=== PATIENT | female | born 1965 | race Caucasian/White ===

== ENCOUNTER → 2019-09-26 09:26 | Outpatient (BNVA) | payer BC, SELFPAY | PROVIDERS: Family Provider Nurse Practitioner; PCP Nurse Practitioner; Visit Provider Nurse Practitioner | DX: E11.65 Type 2 diabetes mellitus with hyperglycemia (principal); Z79.4 Long term (current) use of insulin; E03.9 Hypothyroidism, unspecified; I10 Essential (primary) hypertension; F41.8 Other specified anxiety disorders; E55.9 Vitamin D deficiency, unspecified | CPT/HCPCS: 80053; 80061; 81000; 82306; 83036; 83721; 84443 ==

== ENCOUNTER 2019-10-16 05:26 | Emergency (ER) | payer BC, SELFPAY ==
[2019-10-16 05:31] VITALS: BP 142/93; PULSE 89; RESP 16; TEMP 36.6; O2SAT 97; BMI 32.5
[2019-10-16 05:57] VITALS: BP 136/99; PULSE 98; RESP 20; O2SAT 99
--- NOTE | 2019-10-16 06:00 | ED_ITS ---
HPI - Back Pain/Injury General: Chief Complaint: Back Pain/Injury Stated Complaint: back pain Time Seen by Provider: 10/16/19 05:56 History of Present Illness: HPI Narrative: 54-year-old female presents emergency room with right flank pain. She had a telehealth visit they diagnosed her as having shingles. She does not have any vesicular rash. She is currently taking an anti-viral but has not noticed any improvement. MD elicited complaint: other (Right flank pain) Onset (ago): day(s) Timing: constant Severity: moderate Similar Symptoms Previously: No Quality: burning Location: right flank Radiation: none Exacerbating factors: none Relieving factors: none Associated symptoms: Deny abdominal pain, arthralgias, chills, change in bowel habits, difficulty walking, dysuria, fatigue, fecal incontinence, fever(s), hematuria, myalgias, nausea, numbness, syncope, tingling/numbness/burning, urinary frequency, urinary urgency, vomiting or weakness Treatments prior to arrival: other medications Review of Systems Const: Denies: fever(s), chills or fatigue ENMT: Denies: throat pain, ear or mastoid pain, nasal discharge or nasal congestion Card: Denies: syncope Resp: Denies: dyspnea, productive cough or non-productive cough GI: Denies: abdominal pain, nausea, vomiting, fecal incontinence or change in bowel habits : Denies: dysuria, urinary urgency or hematuria Skin/Breast: Denies: rash or pruritus Neuro: Denies: difficulty walking PFSH ED PFSH: Medical History Adult hypothyroidism Anxiety with depression Arthritis right hand 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 Diabetes mellitus with hyperglycemia, with long-term current use of insulin Environmental and seasonal allergies Essential (primary) hypertension Mixed hyperlipidemia Vitamin D deficiency Surgical History History of lipoma Back 1990 and abdomen History of reduction surgery of left breast History of reduction surgery of right breast History of thyroidectomy History of tubal ligation Family History Other Diabetes Heart disease Hypertension Social History Smoking and tobacco status: former smoker Second hand smoke exposure: No Smoking risk assessment/counseling performed?: No Alcohol intake: never Desire information about alcohol rehabilitation?: No Counseling given: No Desire information about substance/drug rehabilitation?: No Counseling given: No Adopted: No Caregiver/support person: No Lives independently: Yes Household members: none Housing: House Marital status: Number of children: 1 service: Yes branch: [employer] 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 Pets and animals: Yes Pets & animals: dog(s) History of recent travel: No Current gender identity: Female Female Reproductive History: Date of last menstrual period: 10/06/19 Physical Exam Const: COMMON NORMALS: average body habitus, patient oriented x3 and alert GENERAL APPEARANCE: cooperative, comfortable, well kempt and well developed NUTRITIONAL APPEARANCE: obese ORIENTATION/CONSCIOUSNESS: Yes awake, Yes oriented to person and Yes oriented to place HENMT: COMMON NORMALS: normocephalic, atraumatic and EAC's normal HEAD & SCALP: normocephalic and atraumatic EXTERNAL AUDITORY CANAL: EAC's normal Eye: COMMON NORMALS: Equal, round and reactive pupils present, EOMs intact bilaterally, conjunctivae normal and no scleral icterus CONJUNCTIVA: Yes conjunctivae normal PUPIL: Yes Equal, round and reactive pupils present Neck/C-Spine: COMMON NORMALS: no meningeal signs Resp: COMMON NORMALS: normal respiratory effort, No retractions, No use of accessory muscles and clear to auscultation bilaterally AUSCULTATION: clear to auscultation bilaterally Cardio: COMMON NORMALS: regular rate and regular rhythm RATE: regular rate RHYTHM: regular rhythm HEART SOUNDS: no murmurs GI: COMMON NORMALS: Normal to inspection, nondistended, normoactive bowel sounds present, Soft to palpation and No hepatosplenomegaly present PALPATION: Yes Soft to palpation and Yes No hepatosplenomegaly present : COMMON NORMALS: Yes no CVA tenderness BLADDER/KIDNEY EXAM: Yes no CVA tenderness Back/Pelvis: COMMON NORMALS: no CVA tenderness LUMBAR SPINE/LOWER BACK: Yes normal to inspection Extremity: COMMON NORMALS: no clubbing, cyanosis or edema, no calf tenderness and no pedal edema Neuro: COMMON NORMALS: patient oriented x3 SENSORIUM/ORIENTATION: Yes alert, Yes oriented to person and Yes oriented to place MENINGEAL SIGNS: Yes no meningeal signs Psych: APPEARANCE: Yes well kempt Skin: COMMON NORMALS: no rashes or lesions noted and turgor normal GENERAL SKIN EXAM: no rashes or lesions noted and turgor normal Course Vital Signs: Vital signs: Vital Signs Temperature 97.8 F 10/16/19 05:31 Pulse Rate 88 10/16/19 07:57 Respiratory Rate 20 H 10/16/19 07:57 Blood Pressure 156/97 10/16/19 07:57 Pulse Oximetry 98 10/16/19 07:57 MDM - Back Pain/Injury MDM Narrative: Medical decision making narrative: Large right ureteral stone proximal. Will start on above medications her pain is well controlled and I can discharge her home however follow-up with urology return if has uncontrollable pain Lab Data: Labs: Lab Results 10/16/19 10/16/19 10/16/19 Range/Units 05:43 06:26 06:26 WBC 7.5 (4.0-10.0) 10^3/ uL RBC 4.91 (4.1-5.3) 10^6/u L Hgb 14.7 (11.5-15.3) g/dL Hct 42.9 (37.0-47.0) % MCV 87.4 (81-99) fL MCH 29.9 (28.0-34.0) pg MCHC 34.3 (30.0-36.0) g/dL RDW 12.8 (12.1-15.1) % Plt Count 297 (130-400) 10^3/c mm MPV 10.3 (7.4-10.4) fL Neut % (Auto) 64.2 % Lymph % (Auto) 27.1 % [place] % (Auto) 5.6 % Eos % (Auto) 1.1 % Baso % (Auto) 0.9 % Neut # (Auto) 4.78 (1.8-7.7) 10^3/u L Lymph # (Auto) 2.0 (0.8-4.8) 10^3/u L [place] # (Auto) 0.4 (0.2-0.9) 10^3/u L Eos # (Auto) 0.1 (0.0-0.8) 10^3/u L Baso # (Auto) 0.1 (0.0-0.1) 10^3/u L Nucleated RBC % (a uto) 0 % Nucleated RBCs # 0.0 /100WBC Sodium 134 L (136-145) mmol/L Potassium 4.2 (3.5-5.1) mmol/L Chloride 99 (98-107) mmol/L Carbon Dioxide 22 (22-29) mmol/L Anion Gap 17.2 (5-19) BUN 13 (6-20) mg/dL Creatinine 0.6 (0.5-0.9) mg/dL GFR Calculation 105.0 (90-130) mL/min Glucose 442 H (65-115) mg/dL Calculated Osmolal ity 293 (285-295) mOsm/k g Calcium 9.7 (8.5-10.5) mg/dL Total Bilirubin 0.3 (0.15-1.2) mg/dL AST 13 (0-32) U/L ALT 20 (0-33) U/L Alkaline Phosphata se 128 H (35-105) IU/L Total Protein 7.7 (6.6-8.7) g/dL Albumin 4.5 (3.5-5.2) g/dL Globulin 3.2 (1.3-4.6) g/dL Urine Color Yellow (Yellow) Urine Appearance Hazy A (CLEAR) Urine pH 5 (5-7) Ur Specific Gravit y 1.020 (1.005-1.030) Urine Protein Neg (Negative) Urine Glucose (UA) 4+ H (Normal) Urine Ketones Negative (Negative) Urine Blood 2+ H (Negative) Urine Nitrate Negative (Negative) Urine Bilirubin Neg (NEGATIVE) Urine Urobilinogen Norm (Negative) mg/dL Ur Leukocyte Aleyda ase Negative (Negative) Urine RBC 5-10 H (0-2) /hpf Urine WBC 25-40 H (0-5) /hpf Ur Squamous Epith Cells 10-15 H (0-5) Amorphous Sediment Not Reportable Urine Bacteria 1+ H (NONE) Urine Mucus Trace Urine Yeast Trace Discharge Plan Discharge Patient Disposition: Home Clinical Impression: Right nephrolithiasis Condition: Stable Prescriptions: New hydrocodone-acetaminophen 5-325 mg tablet 1 tab PO Q6H PRN (Reason: pain) Qty: 20 RF: 0 Zofran 4 mg tablet 4 mg PO Q6H PRN (Reason: nausea and vomiting) Qty: 14 RF: 0 Cipro 500 mg tablet 500 mg PO BID Qty: 10 RF: 0 Flomax 0.4 mg capsule 0.4 mg PO DAILY Qty: 10 RF: 0 No Action albuterol sulfate [ProAir HFA] 90 mcg/actuation HFA aerosol inhaler 2 puff INHALATION QID RF: 0 ergocalciferol (vitamin D2) 50,000 unit tablet PO RF: 0 amlodipine 5 mg tablet 5 mg PO DAILY Qty: 90 RF: 0 levothyroxine [Synthroid] 200 mcg tablet 200 mcg PO DAILY Qty: 90 RF: 0 lisinopril 10 mg tablet 10 mg PO DAILY Qty: 90 RF: 0 metformin 500 mg tablet extended release 24hr 500 mg PO TID 90 Days Qty: 270 RF: 0 venlafaxine [Effexor XR] 75 mg capsule,extended release 24hr 75 mg PO DAILY Qty: 90 RF: 0 Levemir FlexTouch U-100 Insuln 100 unit/mL (3 mL) insulin pen 60 unit SUBCUT DAILY Qty: 15 RF: 2 Ozempic 0.25 mg or 0.5 mg(2 mg/1.5 mL) pen injector 0.25 mg SUBCUT .weekly Qty: 1.5 RF: 0 fenofibrate nanocrystallized [Tricor] 145 mg tablet 145 mg PO DAILY Qty: 30 RF: 2 insulin lispro [Humalog KwikPen Insulin] 100 unit/mL insulin pen 3 - 24 unit SUBCUT TID Qty: 15 RF: 0 zonisamide 50 mg capsule 50 mg PO BID Qty: 60 RF: 0 valacyclovir [Valtrex] 1 gram tablet 1,000 mg PO TID Qty: 21 RF: 0 Discharge Orders: Discharge Order (Routine); Ordered 10/16/19 Ordered By: Kuldeep Sigala Referrals: Cristian White MD [Physician] - Discharge Diet: Usual diet Discharge Activity: Increase activity as tolerated Activity Restrictions/Additional Instructions: Case management will call with an appointment to urology Discharge Date/Time: 10/16/19 07:48 Coding Level of Care Code ED Audiology Assistant for [facility] Fwd Exam Comprehensive
--- NOTE | 2019-10-16 06:21 | CTR_ITS ---
PROCEDURE INFORMATION: Exam: CT Lumbar Spine Without Contrast Exam date and time: 10/16/2019 6:23 AM Age: 54 years old Clinical indication: Low back pain; Patient HX: C/O of severe pain just adjacent to right side of lumbar spine. ; Additional info: Radicular leg pain TECHNIQUE: Imaging protocol: Computed tomography images of the lumbar spine without contrast. Radiation optimization: All CT scans at this facility use at least one of these dose optimization techniques: automated exposure control; mA and/or kV adjustment per patient size (includes targeted exams where dose is matched to clinical indication); or iterative reconstruction. COMPARISON: No relevant prior studies available. RADIATION DOSE METRICS: Total DLP (mGy-cm): 2385.43 FINDINGS: Vertebrae: No acute fracture. No subluxation. Discs/Spinal canal/Neural foramina: T12-L1 shows ossification of posterior longitudinal ligament with flattening the ventral thecal sac, without significant stenosis. There are lumbar disc bulges, thickening of ligamentum flavum, and facet degenerative changes. There are small anterior osteophytes. There is also curvilinear calcification ligamentum flavum. L1-L2 shows no spinal stenosis or neural foraminal narrowing. L2-L3 shows broad-based right foraminal disc protrusion which shows partial calcification/osteophyte at superior margin. This causes nxrv-fw-honvywhs neural foraminal narrowing and does contact the right L2 nerve root. No left neural foraminal narrowing. There is mild spinal stenosis. L3-L4 shows huni-rm-sulxkdsj spinal stenosis and mild neural foraminal narrowing. L4-L5 shows dyge-ng-ehlocdls spinal stenosis and mild foraminal narrowing. L5-S1 shows calcification or osteophyte along anterior aspect left facet with severe narrowing of medial left neural foramen. There uatu-ne-lwcxkqxe right neural foraminal narrowing. There is no spinal stenosis. Kidneys and ureters: Right hydronephrosis. Stone in proximal ureter. Please report of abdominal and pelvic CT. Soft tissues: See Discs/Spinal canal/Neural foramina finding. CT/CT lumbar spine wo con* [id number] IMPRESSION: 1. Right hydronephrosis with stone in ureter. This is likely patient's pain. 2. No acute fracture. Degenerative changes as described. Radiation Dose CTDIVOL = (mGy): DLP = 2385.43 (mGy-cm)
[2019-10-16 06:37] LABS: Basophils # 0.1 10^3/uL (0.0-0.1); Basophils % 0.9 %; Eosinophils # 0.1 10^3/uL (0.0-0.8); Eosinophils % 1.1 %; Hematocrit 42.9 % (37.0-47.0); Hemoglobin 14.7 g/dL (11.5-15.3); Lymphocytes % 27.1 %; Mean Corpuscular HGB Conc 34.3 g/dL (30.0-36.0); Mean Corpuscular Hemoglobin 29.9 pg (28.0-34.0); Mean Corpuscular Volume 87.4 fL (81-99); Mean Platelet Volume 10.3 fL (7.4-10.4); Monocytes # 0.4 10^3/uL (0.2-0.9); Monocytes % 5.6 %; Neutrophils # 4.78 10^3/uL (1.8-7.7); Neutrophils % 64.2 %; Nucleated Red Blood Cells % 0 %; Platelet Count 297 10^3/cmm (130-400); Red Blood Count 4.91 10^6/uL (4.1-5.3); Red Cell Distribution Width 12.8 % (12.1-15.1); White Blood Count 7.5 10^3/uL (4.0-10.0)
--- NOTE | 2019-10-16 06:40 | CTR_ITS ---
PROCEDURE INFORMATION: Exam: CT Abdomen And Pelvis Without Contrast Exam date and time: 10/16/2019 6:40 AM Age: 54 years old Clinical indication: Abdominal pain; Prior surgery; Surgery type: Tubal ligation; Patient HX: C/O right flank pain. TECHNIQUE: Imaging protocol: Computed tomography of the abdomen and pelvis without contrast. Radiation optimization: All CT scans at this facility use at least one of these dose optimization techniques: automated exposure control; mA and/or kV adjustment per patient size (includes targeted exams where dose is matched to clinical indication); or iterative reconstruction. COMPARISON: CT abdomen pelvis w con* [id number] 08/13/2013 3:08 PM RADIATION DOSE METRICS: Total DLP (mGy-cm): 1648 FINDINGS: Liver: There is diffuse decrease in hepatic parenchymal density, consistent with fatty infiltration. There is focal parenchymal sparing adjacent to the gallbladder fossa. Liver is enlarged with right lobe measuring 19.4 cm length. Gallbladder and bile ducts: See Liver finding. Pancreas: Unremarkable as visualized. No ductal dilation. Spleen: Unremarkable as visualized. No splenomegaly. Adrenals: No evidence of mass. Kidneys and ureters: There is uouu-vx-kxipggdu right hydroureteronephrosis with 7.5 mm by 3 mm stone in the proximal ureter. There is a very small calcification measuring approximately 1.3 mm seen on axial image 154 and coronal image 29 which is at anterior aspect of distal ureter proximal to the ureterovesical junction, and therefore may be extraluminal but a very small stone is not completely excluded. Stomach and bowel: No evidence of obstruction. No mucosal thickening. Appendix: No evidence of appendicitis. Intraperitoneal space: No free air. No significant fluid collection. Vasculature: There is mild atherosclerotic change. No aortic aneurysm. Lymph nodes: No enlarged lymph nodes. Bladder: Unremarkable as visualized. Reproductive: Unremarkable as visualized. Bones/joints: Degenerative changes in spine are described on lumbar spine report. There are mild degenerative changes in bilateral hips. Small sclerotic lesion L2 and left-side sacrum are nonspecific but may be bone islands. Soft tissues: There is minimal fat containing paraumbilical hernia. CT/CT kidney stone [id number] IMPRESSION: Right hydronephrosis. Stone proximal ureter. Possible stone versus extraluminal calcification adjacent to distal ureter. Radiation Dose CTDIVOL = (mGy): DLP = 1648 (mGy-cm)
[2019-10-16 06:46] LABS: Add Urine Microscopic? YES; Bilirubin Urine Neg (NEGATIVE); Blood Urine 2+ (Negative); Glucose Urine UA 4+ (Normal); Ketones Urine Negative (Negative); Leukocyte Esterase Urine Negative (Negative); Nitrate Urine Negative (Negative); Protein Urine Neg (Negative); Urine Appearance Hazy (CLEAR); Urine Color Yellow (Yellow); Urobilinogen Urine Norm (Negative); pH Urine 5 (5-7)
[2019-10-16 06:48] LABS: Bacteria Urine 1+; Mucus Urine TRACE; WBC Urine 25-40 /hpf (0-5)
[2019-10-16 06:49] LABS: Add Urine Culture? No
[2019-10-16] MEDS: ondansetron 2 mg/ML SDV 2 mL 4 MG IVP (06:50)
[2019-10-16 06:52] LABS: Alanine Aminotransferase 20 U/L (0-33); Albumin Level 4.5 g/dL (3.5-5.2); Alkaline Phosphatase 128 IU/L (35-105); Anion Gap 17.2 (5-19); Aspartate Amino Transferase 13 U/L (0-32); Blood Urea Nitrogen 13 mg/dL (6-20); Calcium 9.7 mg/dL (8.5-10.5); Carbon Dioxide 22 mmol/L (22-29); Chloride 99 mmol/L (98-107); Globulin 3.2 g/dL (1.3-4.6); Glucose 442 mg/dL (65-115); Osmolality Calculated 293 mOsm/kg (285-295); Potassium 4.2 mmol/L (3.5-5.1); Sodium 134 mmol/L (136-145); Total Bilirubin 0.3 mg/dL (0.15-1.2); Total Protein 7.7 g/dL (6.6-8.7)
[2019-10-16 06:54] VITALS: RESP 20
[2019-10-16] MEDS: morphine 4 mg/mL SDV 1 mL IVP (06:54)
[2019-10-16] MEDS: sodium chloride 0.9% 1,000 ML 999 ML IV (06:55)
[2019-10-16 06:59] VITALS: BP 135/93; PULSE 81; RESP 17; O2SAT 97
[2019-10-16 07:00] VITALS: BP 135/93; PULSE 83; RESP 17; O2SAT 97
[2019-10-16 07:57] VITALS: BP 156/97; PULSE 88; RESP 20; O2SAT 98
--- NOTE | 2019-10-16 08:38 | DCPLANNER ---
cancer registry manager had message to schedule a follow up appointment for patient with Dr. White. cancer registry manager called the office of Dr. White, spoke with Katy, gave clinic patients appointment information. cancer registry manager was told that patients information would be printed and reviewed. Clinic will call patient with appointment information.
--- NOTE | 2019-10-17 12:50 | DCPLANNER ---
Patient attended appointment scheduled for 10.16.19 - patient did attend the appointment.
== END 2019-10-16 07:48 | disposition home or self-care (01) ==
PROVIDERS: Emergency Provider Family Medicine; PCP Nurse Practitioner
DX: N20.0 Calculus of kidney (principal); Z79.4 Long term (current) use of insulin; E11.9 Type 2 diabetes mellitus without complications; I10 Essential (primary) hypertension; E78.2 Mixed hyperlipidemia; Z87.891 Personal history of nicotine dependence
CPT/HCPCS: 12345; 72131; 74176; 80053; 81001; 85025; 96361; 96374; 96375; 99282; 99284; J2270; J2405; J7030

== ENCOUNTER → 2019-10-17 08:31 | Outpatient (BNVA) | payer BC, SELFPAY | PROVIDERS: PCP Nurse Practitioner; Visit Provider Nurse Practitioner Family | DX: N20.0 Calculus of kidney (principal); Z20.828 Contact with and (suspected) exposure to other viral communicable diseases | CPT/HCPCS: 87635 ==

== ENCOUNTER 2019-10-19 12:09 | Day surgery (SDC) | payer BC, SELFPAY ==
[2019-10-18 11:36] VITALS: BMI 32.5
[2019-10-19] VITALS (8 sets, daily range): BP systolic 117–163; BP diastolic 72–100; PULSE 68–97; RESP 13–20; TEMP 36.1–36.6; O2SAT 93–97
--- NOTE | 2019-10-19 12:23 | XR_ITS ---
WS: [id number] KUB, 10/19/2019 Clinical Data: Preop right ESWL Comparison: CT abdomen and pelvis, 10/16/2019. Findings: There is a 1.0 cm calcification adjacent to the right L3 transverse process corresponding to the pro ximal right ureteral calculus noted on the CT exam. The remainder of the examination is unremarkable. No renal dislocations or suspicious pelvic calcific ations are seen. XR/XR KUB [id number] Impression: Proximal right ureteral calculus.
[2019-10-19 13:23] LABS: Glucose Point of Care 309 mg/dL (70-110)
[2019-10-19] MEDS: sodium chloride 0.9% 1,000 ML 30 ML IV (13:23)
--- NOTE | 2019-10-19 13:37 | ANES.PREANE2 ---
Pre-Anesthetic Assessment Pre-Anesthetic Assessment: Height/Weight: Height 1.68 m Weight 91.626 kg Temp Pulse Resp BP Pulse Ox 97.8 F 97 18 142/99 97 10/19/19 13:05 10/19/19 13:05 10/19/19 13:05 10/19/19 13:05 10/19/19 13:05 Preop Diagnosis: Large right proximal ureteral stone with refractory renal colic Proposed Procedure: Operation Date: 10/19/19 13:55 Proposed Procedures p Cystoscopy [id number] N20.0(Not Applicable) - Cristian White MD s Ureteral Stent Placement(Right) - Cristian White MD s ESWL(Not Applicable) - Cristian White MD Familial anesthetic complications: None Was Beta Samia taken within 24 hours: N/A Last intake: Intake Last Liquid Date 10/19/19 Last Liquid Time 08:20 Last Solid Date 10/17/19 Last Solid Time 20:30 Social: Social History: No alcohol and No tobacco Comment: former smoker Exam: Pre-Anes Outpt Exam: alert, oriented x 3, clear to auscultation bilaterally and regular rate & rhythm Airway: Cervical ROM: WNL MP: 3 Dentition: Full Metabolic: Metabolic: DM, Hyperlipidemia, Morbid obesity and Thyroid Anesthetic Plan: ASA status: 2 Anesthesia: General Risk of > 500 ml blood loss (7ml/kg in children): No Meds/Allergies Current Medications: Current Medications Generic Name Dose Route Start Last Admin Trade Name Freq PRN Reason Stop Dose Admin Sodium Chloride 1,000 mls @ 30 ml s/hr 10/19/19 12:30 10/19/19 13:23 Sodium Chloride 0.9% IV 10/20/19 12:29 30 mls/hr .Q24H AKHIL Administration PFSH Anesthesia PFSH: Medical History (Updated 10/17/19 @ 05:37 by Cristian White MD) Adult hypothyroidism Anxiety with depression Arthritis right hand 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 Diabetes mellitus with hyperglycemia, with long-term current use of insulin Environmental and seasonal allergies Essential (primary) hypertension Mixed hyperlipidemia Vitamin D deficiency Surgical History History of lipoma Back 1990 and abdomen History of reduction surgery of left breast History of reduction surgery of right breast History of thyroidectomy History of tubal ligation Family History Other Diabetes Heart disease Hypertension Social History Smoking and tobacco status: former smoker Second hand smoke exposure: No Smoking risk assessment/counseling performed?: No Alcohol intake: never Desire information about alcohol rehabilitation?: No Counseling given: No Desire information about substance/drug rehabilitation?: No Counseling given: No Adopted: No Caregiver/support person: No Lives independently: Yes Household members: none Housing: House Marital status: Number of children: 1 service: Yes branch: [employer] 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
--- NOTE | 2019-10-19 14:58 | P.HPUD_ITS ---
Surgery/Procedure H&P Update DATE OF PROCEDURE: October 19, 2019 DATE H&P PERFORMED: 10/16/19 H&P UPDATE INFORMATION: I have reviewed H&P completed within last 30 days, I have examined patient prior to procedure, No changes to prior documentation and H&P is in [facility] EMR on date indicated PREOP DIAGNOSIS: Large right proximal ureteral stone with refractory renal colic PLANNED PROCEDURE: Operation Date: 10/19/19 13:55 Proposed Procedures p Cystoscopy [id number] N20.0(Not Applicable) - Cristian White MD s Ureteral Stent Placement(Right) - Cristian White MD s ESWL(Not Applicable) - Cristian White MD
[2019-10-19] MEDS: levofloxacin-dextrose 5 % 500 MG/100 ML PREMIX 100 MG IV (15:20)
--- NOTE | 2019-10-19 16:23 | PM.OP ---
Operative Report Date of procedure: October 19, 2019 Pre-op Diagnosis: Large right proximal ureteral stone with refractory renal colic Post-op diagnosis: same Procedure Done: 1. Extracorporeal shockwave lithotripsy to right proximal ureteral stone 2. Cystoscopy with right ureteral stent placement Pathology: none sent Surgeon: Christopher Unified Communications Architect: Lithotripsy [employer] Systems Engineer: Rupert Anesthesia: General Estimated blood loss: None Urine output: Not measured Complications: None Findings: Excellent change. A 6 [place] by 26 cm double-pigtail stent left indwelling, no string Condition: stable Disposition: PACU Brief History: Juana is a very pleasant 54-year-old white female who recently presented with severe right renal colicky symptom and a large spiculated right proximal ureteral stone with obstructive changes identified on CT scan in the absence of UTI. She had been hurting for a couple weeks with no evidence of progression. She was admitted to outpatient surgery today for ESWL and likely stent placement. Procedure: After urgent evaluation examination and obtaining of informed consent she was taken to the operating suite on 10/19/2019 where general anesthesia was administered without difficulty after appropriate timeout was performed, SCDs confirmed to be functioning, preoperative antibiotics administered, beta-stewart protocol confirmed. Position on the Dornier unit such that the stone was located at the focal point utilizing biplanar fluoroscopy with a shock head positioned posteriorly. Stone was easily identified. Shock therapy stats: 2500 shocks administered Intensity 1-4 Rate 60-90 Response: Excellent. Dramatic change. She was then repositioned in dorsolithotomy position pain careful attention to avoiding pressure points. Prepped and draped in the usual sterile fashion. 21 [place] cystoscope with 30 degree lens was introduced into the urethral meatus and advanced into the bladder under videoscopy Flexible tip guidewire did easily advanced up the right ureter bypassing the sand cluster which dispersed it even further. 6 [place] by 26 cm double-pigtail stent advanced over the guidewire through the cystoscope into appropriate position as confirmed via fluoroscopy and cystoscopy. Stent was confirmed to be draining. Bladder was drained and the procedure completed. Tolerated the procedure well without complications and was awakened in the operating room and returned to recovery in stable condition. PLANS: 1. Discharge from outpatient surgery today. Follow-up next week with a KUB and likely cystoscopy stent removal if perceived change/fragmentation is correct
--- NOTE | 2019-10-19 16:28 | SUR.PHASEI ---
1626 PATIENT TO PACU FROM OR. RR EVEN AND UNLABORED. DENIES PAIN. PATIENT SPO2 95% ON RA.
[2019-10-19] MEDS: ondansetron 2 mg/ML SDV 2 mL 4 MG IVP ×2 (16:32→16:46)
--- NOTE | 2019-10-19 16:51 | SUR.PHASEI ---
2224 PATIENT C/O PAIN, BUT WANTING TO USE BSC, FEELS THE NEED TO URINATE. NAUSEA IMPROVED. PATIENT TO OPS. ASSISTED TO BSC. C/O NAUSEA IN OPS, ZOFRAN GIVEN.
--- NOTE | 2019-10-19 17:30 | ANE.PACU2 ---
Inpatient post-anesthesia follow up: Airway intact: Yes Vital signs: Temperature 97.0 F Pulse Rate 74 Respiratory Rate 18 Blood Pressure 137/76 Pulse Oximetry 96 Oxygen Delivery Me thod Room Air Oxygen Flow Rate Fraction of Inspir ed Oxygen Hydration adequate: Yes Nausea and vomiting: No Pain level: 1 Mental status: Baseline
== END 2019-10-19 17:38 | disposition home or self-care (01) ==
PROVIDERS: PCP Nurse Practitioner; Visit Provider Urology
PROC: 0TJB8ZZ Inspection of Bladder, Via Natural or Artificial Opening Endoscopic (ICD-10-PCS; CPT 52000; principal; 2019-10-19 13:55)
PROC: (CPT 50605; 2019-10-19 13:55)
PROC: (CPT 50590; 2019-10-19 13:55)
DX: N20.1 Calculus of ureter (principal); E11.9 Type 2 diabetes mellitus without complications; I10 Essential (primary) hypertension; E78.2 Mixed hyperlipidemia; E66.01 Morbid (severe) obesity due to excess calories; Z79.4 Long term (current) use of insulin; Z87.891 Personal history of nicotine dependence; Z68.32 Body mass index [BMI] 32.0-32.9, adult
CPT/HCPCS: 50590; 52332; 12345; 36416; 74018; 81025; 82962; C2625; J1956; J2405; J2704; J3010; J3490; J7030

== ENCOUNTER 2019-10-24 07:08 | Outpatient (CLI) | payer BC, SELFPAY ==
--- NOTE | 2019-10-24 07:30 | XRR_ITS ---
PROCEDURE INFORMATION: Exam: XR Abdomen, 1 View Exam date and time: 10/24/2019 7:22 AM Age: 54 years old Clinical indication: Condition or disease; Kidney or ureter condition; Calculus (stone) in ureter; Prior surgery; Surgery date: 3-7 days post-operative; Surgery type: Renal stent placed; Ureteral stone; Patient HX: Follow up kidney stone removal 5 days ago with stent placed TECHNIQUE: Imaging protocol: XR of the abdomen. Views: Frontal supine view of the abdomen. 1 View. COMPARISON: CR XR KUB [id number] 10/19/2019 12:38 PM FINDINGS: Gastrointestinal tract: bowel gas pattern is nonspecific. Air filled large bowel including distal rectal gas. Moderate amount stool throughout the large bowel. Organs: Double-J ureteric stent on the right.4 mm calcification midpole right kidney. Previously visualized ureteric calculus at the level of the transverse process of L2 no longer visualized. Bones/joints: See Organs finding. XR/XR KUB [id number] IMPRESSION: 1. Bowel gas pattern is nonspecific. Air filled large bowel including distal rectal gas. 2. Moderate amount stool throughout the large bowel. 3. Double-J ureteric stent on the right.4 mm calcification midpole right kidney. Previously visualized ureteric calculus at the level of the transverse process of L2 no longer visualized.
== END 2019-10-24 07:09 | disposition home or self-care (01) ==
LOC: RAD 07:11
PROVIDERS: PCP Nurse Practitioner; Visit Provider Urology
DX: N20.1 Calculus of ureter (principal); Z96.0 Presence of urogenital implants
CPT/HCPCS: 74018; 81001; 82365

== ENCOUNTER 2019-11-07 07:36 | Outpatient (CLI) | payer BC, SELFPAY ==
--- NOTE | 2019-11-07 08:15 | XRR_ITS ---
PROCEDURE INFORMATION: Exam: XR Abdomen, 1 View Exam date and time: 11/07/2019 7:48 AM Age: 54 years old Clinical indication: Condition or disease; Kidney or ureter condition; Calculus (stone) in ureter; Prior surgery; Surgery type: Tubal, kidney stent; Additional info: Right ureteral calculus TECHNIQUE: Imaging protocol: XR of the abdomen. Views: Frontal supine view of the abdomen. 1 View. COMPARISON: 1. CR XR KUB [id number] 10/24/2019 7:[address] kidney stone [id number] 10/16/2019 6:37:16 AM FINDINGS: Gastrointestinal tract: No dilated gas-filled loops of bowel. Organs: There is a 5 mm x 2 mm right renal calculus. No radiopaque ureteral calculus identified. Vasculature: There is a right double-J stent present. Bones/joints: No acute osseous abnormality. XR/XR KUB [id number] IMPRESSION: Right nephrolithiasis.
== END 2019-11-07 07:37 | disposition home or self-care (01) ==
LOC: RAD 07:38
PROVIDERS: PCP Nurse Practitioner; Visit Provider Urology
DX: N20.1 Calculus of ureter (principal); Z96.0 Presence of urogenital implants; N20.0 Calculus of kidney
CPT/HCPCS: 74018; 81001

== ENCOUNTER 2019-12-27 10:48 | Outpatient (CLI) | payer BC, SELFPAY ==
--- NOTE | 2019-12-27 11:00 | XR_ITS ---
WS: [id number] Cervical spine, 3 views, 12/27/2019 Clinical Data: R20.2 - Paresthesia of skin Comparison: None. Findings: No compression fractures are seen. There is straightening of the cervical spine. There is d isc space narrowing at C2-C3 and C3-C4 and C4-C5. There is minimal anterior osteoarthritic spurring f rom C4 through C6. There is no prevertebral soft tissue swelling. The odontoid is unremarkable. The s oft tissues of the neck and the lung apices show only a possible left carotid bifurcation calcificati on.. XR/XR cervical spine 3V* [id number] Impression: 1. Multilevel disc space narrowing. 2. Multilevel osteoarthritic change.
--- NOTE | 2019-12-27 11:30 | XR_ITS ---
WS: [id number] Right shoulder, 3 views, 12/27/2019 Clinical Data: R20.2 - Paresthesia of skin Comparison: None. Findings: No fractures or dislocations are seen. The AC joint is normal. The adjacent right clavicle, right sca pula and ribs are normal. The soft tissues are unremarkable. XR/XR shoulder RT min 2V* [id number] Impression: Negative right shoulder.
== END 2019-12-27 10:49 | disposition home or self-care (01) ==
LOC: RADWPI 10:52
PROVIDERS: PCP Nurse Practitioner; Visit Provider Nurse Practitioner
DX: R20.2 Paresthesia of skin (principal)
CPT/HCPCS: 72040; 73030

== ENCOUNTER → 2020-01-02 11:48 | Outpatient (BNVA) | payer BC, SELFPAY | PROVIDERS: PCP Nurse Practitioner; Visit Provider Nurse Practitioner | DX: E03.9 Hypothyroidism, unspecified (principal); E11.65 Type 2 diabetes mellitus with hyperglycemia; E55.9 Vitamin D deficiency, unspecified; Z79.4 Long term (current) use of insulin | CPT/HCPCS: 80053; 80061; 81000; 82306; 83036; 83721; 84439; 84443; 84481; 85025 ==

== ENCOUNTER → 2020-04-23 08:55 | Outpatient (BNVA) | payer BC, SELFPAY | PROVIDERS: PCP Family Medicine; Visit Provider Family Medicine | DX: E11.65 Type 2 diabetes mellitus with hyperglycemia (principal); Z79.4 Long term (current) use of insulin; E78.1 Pure hyperglyceridemia; E03.9 Hypothyroidism, unspecified; K21.9 Gastro-esophageal reflux disease without esophagitis; M50.120 Mid-cervical disc disorder, unspecified level; M79.601 Pain in right arm; I10 Essential (primary) hypertension; M79.2 Neuralgia and neuritis, unspecified; Z68.31 Body mass index [BMI] 31.0-31.9, adult | CPT/HCPCS: 80053; 80061; 83721; 84439; 84443; 84480 ==

== ENCOUNTER → 2020-04-29 08:45 | Outpatient (BNVA) | payer BC, SELFPAY | PROVIDERS: PCP Family Medicine; Visit Provider Internal Medicine | DX: E03.9 Hypothyroidism, unspecified (principal); E11.65 Type 2 diabetes mellitus with hyperglycemia; Z79.4 Long term (current) use of insulin; E78.5 Hyperlipidemia, unspecified; R10.9 Unspecified abdominal pain | CPT/HCPCS: 95251; 99205 ==

== ENCOUNTER 2020-05-02 11:38 | Outpatient (CLI) | payer BC, SELFPAY ==
[2020-05-02 12:34] LABS: Estmated Average Glucose 295; Hemoglobin A1C 11.9 % (4.0-6.0)
[2020-05-02 12:41] LABS: Free T4 Free Thyroxine 1.44 ng/dL (0.82-1.77); Lipase 23 U/L (13-60); Thyroid Stimulating Hormone 5.87 uIU/mL (0.27-4.20)
== END 2020-05-02 11:39 | disposition home or self-care (01) ==
PROVIDERS: PCP Family Medicine; Visit Provider Internal Medicine
DX: E03.9 Hypothyroidism, unspecified (principal); E11.65 Type 2 diabetes mellitus with hyperglycemia; Z79.4 Long term (current) use of insulin; R10.9 Unspecified abdominal pain
CPT/HCPCS: 83036; 83690; 84439; 84443

== ENCOUNTER 2020-05-07 08:52 | Outpatient (CLI) | payer BC, SELFPAY ==
--- NOTE | 2020-05-07 09:05 | XR_ITS ---
WS: [id number] SHOULDER RIGHT TECHNIQUE: 3 views of the right shoulder CLINICAL INFORMATION: THORACIC PAIN, RADICULOPATHY COMPARISON: None. FINDINGS: Normal acromioclavicular joint. Normal glenohumeral joint. Acromion is normal in appearance. Normal g lenoid. No evidence of acute fracture dislocation. XR/XR shoulder RT min 2V* [id number] IMPRESSION: Unremarkable right shoulder
--- NOTE | 2020-05-07 09:05 | XR_ITS ---
WS: [id number] THORACIC SPINE TECHNIQUE: 3 views of the thoracic spine CLINICAL INFORMATION: THORACIC PAIN, RADICULOPATHY COMPARISON: None. FINDINGS: Mild thoracic curve. Mild thoracic kyphosis. Anterior hypertrophic changes in the mid lower thoracic spine. Mild chronic anterior wedging in the mid thoracic spine. No acute appearing compression fractu res. XR/XR thoracic spine 3V* [id number] IMPRESSION: Mild spondylitic changes thoracic spine with anterior wedging. No acute finding s.
== END 2020-05-07 08:53 | disposition home or self-care (01) ==
PROVIDERS: PCP Family Medicine; Visit Provider Chiropractor
DX: M54.6 Pain in thoracic spine (principal); M54.14 Radiculopathy, thoracic region
CPT/HCPCS: 72072; 73030

== ENCOUNTER 2020-05-12 10:42 | Outpatient (CLI) | payer BC, SELFPAY ==
--- NOTE | 2020-05-12 11:12 | MR_ITS ---
WS: [id number] MRI CERVICAL SPINE NONCONTRAST TECHNIQUE: Sagittal T1, T2 and STIR imaging. Axial T2, gradient, and fiesta imaging. CLINICAL INFORMATION: COMPARISON: None. FINDINGS: Straightening of the normal cervical lordosis. Cord signal is normal. Mild disc bulging at C5-C6 and C6-C7. C2-C3: Normal. C3-C4: Mild left and no significant right foraminal narrowing. Moderate left facet arthropathy. C4-C5: Osteophytic ridging. Mild left bony foraminal narrowing. Moderate left facet arthropathy. Spin al canal and foramen are patent. C5-C6: Mild annular bulging with mild central canal stenosis.. Mild facet arthropathy. Mild bilateral foraminal narrowing. C6-C7: Mild disc bulging and osteophytic ridging. Mild left greater than right bony foraminal narrowi ng. Mild central canal stenosis. C7-T1: Mild left and no significant right foraminal narrowing. Spinal canal is patent. Visualized brain stem structures: Normal. Prevertebral soft tissues: Normal. MR/MR cervical spin wo con* [id number] IMPRESSION: 1. Straightening of the normal cervical lordosis. Cord signal is normal. 2. Mild central canal stenosis C6-7 with mild left bony foraminal narrowing. 3. Mild annular bulging C5-C6 with mild central canal stenosis. Mild bilateral foraminal narrowing. 4. Moderate left facet arthropathy C4-5 with mild left bony foraminal narrowin g. 5. Moderate left facet arthropathy C3-C4 with mild left bony foraminal narrowi ng.
== END 2020-05-12 10:43 | disposition home or self-care (01) ==
LOC: RADWPI 11:07
PROVIDERS: PCP Family Medicine; Visit Provider Family Medicine
DX: M50.30 Other cervical disc degeneration, unspecified cervical region (principal); M79.601 Pain in right arm; M47.812 Spondylosis without myelopathy or radiculopathy, cervical region; M50.222 Other cervical disc displacement at C5-C6 level
CPT/HCPCS: 72141

== ENCOUNTER → 2020-05-27 09:46 | Outpatient (BNVA) | payer BC, SELFPAY | PROVIDERS: PCP Family Medicine; Referring Provider Family Medicine; Visit Provider Orthopaedic Surgery | DX: M50.321 Other cervical disc degeneration at C4-C5 level (principal); M50.322 Other cervical disc degeneration at C5-C6 level; M50.323 Other cervical disc degeneration at C6-C7 level | CPT/HCPCS: 72040 ==

== ENCOUNTER 2020-06-04 11:12 | Outpatient (RCR) | payer BC, SELFPAY | END 2020-06-13 23:59 | disposition home or self-care (01) | LOC: SPT 11:12 | PROVIDERS: PCP Family Medicine; Referring Provider Orthopaedic Surgery; Visit Provider Orthopaedic Surgery | DX: M75.01 Adhesive capsulitis of right shoulder (principal) | CPT/HCPCS: 97110; 97161 ==

== ENCOUNTER → 2020-07-09 09:17 | Outpatient (BNVA) | payer BC, SELFPAY | PROVIDERS: PCP Nurse Practitioner; Visit Provider Nurse Practitioner | DX: E03.9 Hypothyroidism, unspecified (principal); E11.65 Type 2 diabetes mellitus with hyperglycemia; Z79.4 Long term (current) use of insulin; I10 Essential (primary) hypertension; E78.2 Mixed hyperlipidemia; F41.8 Other specified anxiety disorders | CPT/HCPCS: 80053; 83036; 84439; 84443; 84481 ==

== ENCOUNTER 2020-09-23 15:09 | Outpatient (CLI) | payer BC, SELFPAY ==
--- NOTE | 2020-09-23 15:15 | MR_ITS ---
WS: [id number] MRI LUMBAR SPINE NONCONTRAST TECHNIQUE: Sagittal T1, T2 and STIR imaging. Axial T1 and T2 imaging. CLINICAL INFORMATION: COMPARISON: None. FINDINGS: Mild lumbar curve. No acute compression. No high-grade central canal stenosis. Shallow central protru wilfrid with slight subligamentous disc herniation at T12-L1 with cranial and caudal migration of disc m aterial. This results in mild central canal stenosis with slight effacement of ventral thecal sac. Mi ld facet arthropathy. Foramen are patent. L1-L2: Normal. L2-L3: Small right foraminal protrusion with a tiny annular fissure impinges the exiting right L2 ner ve root. Recommend correlation for right L2 nerve root symptoms. Moderate right foraminal narrowing. Left foramen is patent. Moderate facet arthropathy. Slight narrowing of the right subarticular recess . L3-L4: Minimal annular bulging. Slight effacement of ventral thecal sac. Small bilateral foraminal pr otrusions with mild bilateral foraminal narrowing. Slight contact of the exiting left greater than ri ght L3 nerve roots. Mild facet arthropathy. L4-L5: Mild annular bulging with slight effacement of ventral thecal sac. Impingement on the subartic ular recess and traversing L5 nerve roots bilaterally. Mild right and no significant left foraminal n arrowing. Mild facet arthropathy. L5-S1: Mild annular bulging with slight effacement of ventral thecal sac. Slight impingement on the l eft subarticular recess and traversing left S1 nerve root. Moderate facet arthropathy with ligamentum flavum hypertrophy. Mild left foraminal narrowing. Visualized pelvic bony structures: Normal. Paravertebral soft tissues: Normal. MR/MR lumbar spine wo con* [id number] IMPRESSION: 1. Mild lumbar curve. No acute compression. No high-grade central canal stenos is. 2. Subligamentous disc herniation T12-L1 with a shallow central protrusion. Mi ld central canal stenosis. Foramen are patent. 3. Right foraminal protrusion L2-3 impinges the exiting right L2 nerve root wi th a small annular tear and moderate right foraminal narrowing. In addition, sl ight impingement traversing right L3 nerve root at this level in the subarticul ar recess. 4. Tiny bilateral frontal protrusions L3-4 slightly contact the exiting left g reater than right L3 nerve roots with mild left greater than right foraminal na rrowing. 5. Mild annular bulging L4-5 with impingement on the traversing L5 nerve roots bilaterally. 6. Disc bulging L5-S1 impinges the left S1 nerve root in the subarticular rece ss. Mild to moderate left L5-S1 foraminal narrowing at this level with moderate facet arthropathy.
== END 2020-09-23 15:10 | disposition home or self-care (01) ==
LOC: RADSHAW 15:14
PROVIDERS: PCP Nurse Practitioner; Visit Provider Nurse Practitioner
DX: M79.605 Pain in left leg (principal); M51.27 Other intervertebral disc displacement, lumbosacral region; M51.26 Other intervertebral disc displacement, lumbar region; M51.25 Other intervertebral disc displacement, thoracolumbar region
CPT/HCPCS: 72148

== ENCOUNTER → 2020-10-15 10:14 | Outpatient (BNVA) | payer BC, SELFPAY | PROVIDERS: PCP Nurse Practitioner; Referring Provider Orthopaedic Surgery; Visit Provider Anesthesiology Pain Medicine | DX: M47.816 Spondylosis without myelopathy or radiculopathy, lumbar region (principal); M79.605 Pain in left leg | CPT/HCPCS: 99204 ==

== ENCOUNTER 2020-11-12 06:00 | Outpatient (RCR) | payer BC, SELFPAY | END 2020-11-13 23:59 | disposition home or self-care (01) | LOC: SPT 06:00 | PROVIDERS: PCP Nurse Practitioner; Referring Provider Anesthesiology Pain Medicine; Visit Provider Anesthesiology Pain Medicine | DX: M47.816 Spondylosis without myelopathy or radiculopathy, lumbar region (principal); M54.5 Low back pain; M79.605 Pain in left leg | CPT/HCPCS: 97161 ==

== ENCOUNTER 2020-11-14 06:00 | Outpatient (RCR) | payer BC, SELFPAY | END 2020-12-14 23:59 | disposition home or self-care (01) | LOC: SPT 06:00 | PROVIDERS: PCP Nurse Practitioner; Referring Provider Anesthesiology Pain Medicine; Visit Provider Anesthesiology Pain Medicine | DX: M47.816 Spondylosis without myelopathy or radiculopathy, lumbar region (principal) | CPT/HCPCS: 97032; 97110 ==

== ENCOUNTER → 2020-11-18 09:18 | Outpatient (BNVA) | payer BC, SELFPAY | PROVIDERS: PCP Family Medicine; Visit Provider Internal Medicine | DX: E11.65 Type 2 diabetes mellitus with hyperglycemia (principal); E55.9 Vitamin D deficiency, unspecified; E78.5 Hyperlipidemia, unspecified; Z79.4 Long term (current) use of insulin; E03.9 Hypothyroidism, unspecified | CPT/HCPCS: 80048; 83036; 84439; 84443; 99214 ==

== ENCOUNTER → 2020-12-29 10:16 | Outpatient (BNVA) | payer BC, SELFPAY | PROVIDERS: PCP Nurse Practitioner; Visit Provider Anesthesiology Pain Medicine | DX: G89.29 Other chronic pain (principal); M47.816 Spondylosis without myelopathy or radiculopathy, lumbar region; M79.605 Pain in left leg; M54.2 Cervicalgia; Z87.891 Personal history of nicotine dependence | CPT/HCPCS: 99214 ==

== ENCOUNTER → 2021-01-15 14:28 | Outpatient (BNVA) | payer BC, SELFPAY | PROVIDERS: PCP Nurse Practitioner; Visit Provider Anesthesiology Pain Medicine | DX: M54.16 Radiculopathy, lumbar region (principal); Z87.891 Personal history of nicotine dependence | CPT/HCPCS: 64483; 64484; J1100; J3490 ==

== ENCOUNTER 2021-01-23 07:49 | Outpatient (CLI) | payer BC, SELFPAY ==
[2021-01-23 08:39] LABS: T3 Free 1.3 PG/ML (2.0-4.4); Thyroid Stimulating Hormone 30.79 uIU/mL (0.27-4.20)
== END 2021-01-23 07:50 | disposition home or self-care (01) ==
LOC: LAB 07:51
PROVIDERS: PCP Nurse Practitioner; Visit Provider Nurse Practitioner
DX: E03.9 Hypothyroidism, unspecified (principal)
CPT/HCPCS: 36415; 84439; 84443; 84481

== ENCOUNTER 2021-02-12 14:48 | Outpatient (CLI) | payer BC, SELFPAY ==
[2021-02-12 15:58] LABS: Free T4 Free Thyroxine 1.74 ng/dL (0.82-1.77)
[2021-02-13 07:27] LABS: T3 Total 87 ng/dL (76-181)
== END 2021-02-12 14:49 | disposition home or self-care (01) ==
PROVIDERS: PCP Nurse Practitioner; Visit Provider Internal Medicine
DX: E03.9 Hypothyroidism, unspecified (principal)
CPT/HCPCS: 36415; 84439; 84480

== ENCOUNTER → 2021-02-24 14:19 | Outpatient (BNVA) | payer BC, SELFPAY | PROVIDERS: PCP Nurse Practitioner; Visit Provider Nurse Practitioner Family | DX: Z20.822 Contact with and (suspected) exposure to COVID-19 (principal) | CPT/HCPCS: 87635 ==

== ENCOUNTER → 2021-05-22 11:15 | Outpatient (BNVA) | payer BC, SELFPAY | PROVIDERS: PCP Nurse Practitioner; Visit Provider Family Medicine Adult Medicine | DX: J32.9 Chronic sinusitis, unspecified (principal) | CPT/HCPCS: 87400 ==

== ENCOUNTER 2021-10-23 18:34 | Emergency (ER) | payer BC, SELFPAY ==
[2021-10-23 19:00] VITALS: BP 187/95; PULSE 95; RESP 16; TEMP 36.6; O2SAT 94; BMI 30.9
[2021-10-23] MEDS: orphenadrine 30 mg/mL Inj 2 mL 60 MG IVP (19:45)
[2021-10-23] MEDS: ketorolac 30 mg/mL INJ IVP (19:45)
--- NOTE | 2021-10-23 19:54 | W.ED.BACK ---
HPI - Back Pain/Injury General: Chief Complaint: Back Pain/Injury Stated Complaint: Lower back pain down into legs Time Seen by Provider: 10/23/21 19:20 History of Present Illness: Patient is a 56-year-old female comes to the ED with lower back pain. Patient says she has had chronic lower back pain for the past 4 years. She says 4 years ago she had a fall that started her lower back pain and issues. She currently takes 600 mg of gabapentin for pain 4 times daily. She has an appointment with Dr. Sen on November 10 for further evaluation of lower back pain. She also had an epidural injection back on February 2021 and thinks it is wearing off. Lower back pain flared up approximately 10 days ago. Denies any injury or trauma to cause the recent onset of back pain. She rates it currently a 10 out of 10 and the pain radiates down her left leg. Denies any bladder or bowel incontinence, pelvic anesthesia or any weakness to lower extremities. Associated symptoms: Deny abdominal pain, chills, dysuria, fatigue, fever(s), hematuria, nausea or vomiting Review of Systems Const: Denies: fever(s), chills or fatigue Eyes: Denies: change in vision or eye discomfort ENMT: Denies: throat pain, odynophagia, nasal discharge or nasal congestion Card: Denies: chest pain, palpitations, edema, swelling of feet/ankles, dyspnea on exertion or orthopnea Resp: Denies: dyspnea, productive cough or non-productive cough GI: Denies: abdominal pain, nausea, vomiting, diarrhea, constipation or hematochezia : Denies: flank pain, dysuria or hematuria Musc: Reports: back pain; Denies: neck pain or extremity swelling Skin/Breast: Denies: rash or new lesions Neuro: Denies: headache(s), numbness in extremities or weakness in extremities PFSH ED PFSH: Medical History Acid reflux Adult hypothyroidism Allergic rhinitis due to allergen Anxiety with depression Arthritis right hand 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 Diabetes mellitus with hyperglycemia, with long-term current use of insulin Environmental and seasonal allergies Essential (primary) hypertension Mixed hyperlipidemia Neuropathy due to herpes zoster S/P extracorporeal shock wave therapy ureteral stent placement Vitamin D deficiency Surgical History History of lipoma Back 1990 and abdomen History of reduction surgery of left breast History of reduction surgery of right breast History of thyroidectomy History of tubal ligation Family History Other Diabetes Heart disease Hypertension Social History Smoking and tobacco status: former smoker Second hand smoke exposure: No Smoking risk assessment/counseling performed?: No Alcohol intake: never Desire information about alcohol rehabilitation?: No Counseling given: No Desire information about substance/drug rehabilitation?: No Counseling given: No Adopted: No Caregiver/support person: No Lives independently: Yes Household members: none Housing: House Marital status: service: No History of recent travel: No Current gender identity: Female Physical Exam Const: COMMON NORMALS: patient oriented x3 and alert GENERAL APPEARANCE: cooperative HENMT: COMMON NORMALS: normocephalic HEAD & SCALP: normocephalic MOUTH: Normal oral and palatal mucosa present THROAT: posterior oropharynx normal and uvula midline Neck/C-Spine: COMMON NORMALS: supple GENERAL: Yes normal visual inspection Resp: COMMON NORMALS: normal respiratory effort, No retractions, No use of accessory muscles and clear to auscultation bilaterally AUSCULTATION: clear to auscultation bilaterally Cardio: COMMON NORMALS: regular rate, regular rhythm, S1 normal heart sound present, S2 normal heart sound present, No gallops present (Cardio), No clicks present (Cardio), No murmurs present (Cardio) and Peripheral pulses 2+ throughout RATE: regular rate RHYTHM: regular rhythm HEART SOUNDS: S1 normal heart sound present and S2 normal heart sound present PERIPHERAL PULSES: Peripheral pulses 2+ throughout GI: COMMON NORMALS: Normal to inspection, nondistended, normoactive bowel sounds present, Soft to palpation, non-tender and no masses PALPATION: Yes Soft to palpation : COMMON NORMALS: Yes no CVA tenderness BLADDER/KIDNEY EXAM: Yes no CVA tenderness Back/Pelvis: COMMON NORMALS: no CVA tenderness LUMBAR SPINE/LOWER BACK: Yes pain with ROM, No lumbar spinal tenderness and Yes paraspinal muscle tenderness Lumbar paraspinal muscle tenderness: left left lumbar paraspinal muscle tenderness: L4 and L5 Neuro: COMMON NORMALS: patient oriented x3 SENSORIUM/ORIENTATION: Yes alert GAIT: Yes Normal gait present Skin: GENERAL SKIN EXAM: dry skin Course Vital Signs: Vital signs: Vital Signs Temperature 98.1 F 10/23/21 21:55 Pulse Rate 92 10/23/21 21:55 Respiratory Rate 18 10/23/21 21:55 Blood Pressure 178/88 10/23/21 21:55 Pulse Oximetry 97 10/23/21 21:55 Oxygen Delivery Me thod 10/23/21 19:00 MDM - Back Pain/Injury Medical Decision Making Patient is a 56-year-old female comes to the ED with lower back pain. Patient is scheduled to see Dr. Sen in a couple weeks. Pain is not lower back and radiates down left leg. Denies any acute trauma or injury to cause worsening symptoms. Denies any bladder or bowel incontinence, pelvic anesthesia or any weakness to lower extremities. Vitals are stable. Exam shows some left paraspinal muscle tenderness of the lumbar region. Patient was given IV meds here in the ED and symptoms improved. She was diagnosed with lumbar radiculopathy and was discharged home with a prescription for Celebrex, prednisone and a muscle relaxer. Told to follow-up with Dr. Sen at her next scheduled appointment. Return to ED precautions given. Patient understood agree with plan. Discharge Plan Discharge Patient Disposition: Home Clinical Impression: Lumbar radiculopathy Condition: Stable Prescriptions: New prednisone 20 mg tablet 20 mg PO BID 5 Days Qty: 10 0RF methocarbamol 750 mg tablet 750 mg PO Q8H PRN (Reason: Back muscle spasms and pain) Qty: 30 0RF celecoxib 100 mg capsule 100 mg PO BID PRN (Reason: pain) Qty: 30 0RF No Action fenofibrate 160 mg tablet 160 mg PO DAILY Qty: 90 3RF acetaminophen [Tylenol] 325 mg tablet 325 mg PO QID PRN albuterol sulfate [ProAir HFA] 90 mcg/actuation HFA aerosol inhaler 2 puff INHALATION QID PRN (Reason: Shortness Of Breath) mupirocin 2 % ointment 1 applic topical BID Qty: 22 0RF cholecalciferol (vitamin D3) [Vitamin D3] 125 mcg (5,000 unit) tablet 15,000 unit PO DAILY Levemir FlexTouch U-100 Insuln 100 unit/mL (3 mL) insulin pen 32 unit SUBCUT BID Qty: 15 3RF Rx Instructions: Take 32 units twice a day subcut insulin lispro [Humalog KwikPen Insulin] 100 unit/mL insulin pen 15 unit SUBCUT TID Qty: 15 3RF Rx Instructions: Administer 15 units three times a day half and hour before meals. cetirizine [Zyrtec] 10 mg tablet 10 mg PO DAILY PRN (Reason: allergy symptoms) Qty: 30 1RF fluticasone propionate 50 mcg/actuation spray,suspension 1 spray intranasal BID PRN (Reason: nasal congestion) Qty: 16 1RF Rx Instructions: administer into each nostril amlodipine 5 mg tablet 5 mg PO DAILY Qty: 90 0RF gabapentin 300 mg capsule 300 mg PO BID Qty: 180 0RF hydroxyzine pamoate 25 mg capsule 25 mg PO BID Qty: 180 0RF lisinopril 20 mg tablet 20 mg PO DAILY Qty: 90 0RF Rx Instructions: i rosuvastatin [Crestor] 40 mg tablet 40 mg PO DAILY Qty: 90 0RF venlafaxine [Effexor XR] 75 mg capsule,extended release 24hr 75 mg PO DAILY Qty: 90 0RF levothyroxine [Levo-T] 200 mcg tablet 200 mcg PO DAILY Qty: 90 3RF Rx Instructions: Take one tablet a day one hour before breakfast and other medicine. levothyroxine [Levo-T] 25 mcg tablet 12.5 mcg PO DAILY Qty: 45 3RF Rx Instructions: Take one half tablet by mouth daily. ([facility] [place]) FreeStyle Karishma 2 [place] [facility] [place] See Rx Instructions .Route Qty: 1 0RF Rx Instructions: Check BS 4 times a day. ([facility] [place]) FreeStyle Karishma 14 Day Sensor Kit See Rx Instructions .ROUTE .MEDSUPPLY Qty: 3 3RF Rx Instructions: check blood sugar 4 times ([facility] [place]) FreeStyle Karishma 2 Sensor Kit See Rx Instructions .Route Qty: 6 3RF Rx Instructions: Change every 14 days. ([facility] [place]) Omnipod DASH PDM Kit (Gen 4) [facility] [place] See Rx Instructions .Route Qty: 1 0RF Rx Instructions: As directed ([facility] [place]) Omnipod Dash Insulin Pod Cartridge See Rx Instructions .Route Qty: 30 3RF Rx Instructions: As directed Repatha SureClick 140 mg/mL pen injector 140 mg SUBCUT .every 14 days Qty: 2 2RF pantoprazole [Protonix] 40 mg tablet,delayed release (DR/EC) 40 mg PO DAILY Qty: 90 1RF insulin lispro [Humalog U-100 Insulin] 100 unit/mL solution See Rx Instructions SUBCUT .COMPLEX Qty: 30 3RF Rx Instructions: Basal setting is 1.5 from 6 am to 12 am and 1.2 from 12 am to 6 am 32.4 u/day. SUBCUT 24 hour dosing; Discharge Orders: Discharge ED (Routine); Ordered 10/23/21 Ordered By: Roger Shankar Referrals: Piero Erickson, [employer] [Primary Care Provider] - Discharge Diet: Regular Discharge Activity: Increase activity as tolerated Patient Instructions: Lumbar Radiculopathy (ED) Activity Restrictions/Additional Instructions: Follow-up with Dr. Sen at your next scheduled appointment in the next couple weeks. Take medications as prescribed. Rest, limit lifting. Cold pack on lower back or try heat. Stretch lower back daily. return to the ER or your medical provider if condition worsens. Please read and understand discharge instructions. Thank you for choosing [facility] for your healthcare needs today. Please realize this is an emergency room and that we are providing you with a medical screening exam and this may not be complete and all inclusive of all the testing and or work up that you may need to determine your ailment or severity of your illness. It is very important that you follow up as instructed or that you return to the Emergency Department should you have concerns or if your condition changes or worsens in any way. Coding Level of Care Code ED Director Personal for Sergey Ortiz Exam Comprehensive
[2021-10-23 20:51] VITALS: RESP 16
[2021-10-23] MEDS: fentaNYL 50 mcg/mL INJ 2mL IVP (20:51)
[2021-10-23 21:55] VITALS: BP 178/88; PULSE 92; RESP 18; TEMP 36.7; O2SAT 97
== END 2021-10-23 21:56 | disposition home or self-care (01) ==
PROVIDERS: Emergency Provider Physician Assistant; PCP Nurse Practitioner
DX: M54.16 Radiculopathy, lumbar region (principal); Z79.4 Long term (current) use of insulin; Z87.891 Personal history of nicotine dependence; E11.9 Type 2 diabetes mellitus without complications; I10 Essential (primary) hypertension; E78.2 Mixed hyperlipidemia
CPT/HCPCS: 96374; 96375; 99284; J1885; J2360; J2930; J3010

== ENCOUNTER 2021-11-27 10:09 | Day surgery (SDC) | payer BC, SELFPAY ==
[2021-11-20 08:20] VITALS: BMI 30.9
--- NOTE | 2021-11-20 08:49 | ANES.PREANE2 ---
Pre-Anesthetic Assessment Height/Weight: Height 1.68 m Weight 87.09 kg Preop Diagnosis: Large right proximal ureteral stone with refractory renal colic Operation Date: 11/27/21 07:00 Proposed Procedures p Lumbar Spine Decompression César. L4/5(Not Applicable) - Ciaran Sen, Familial anesthetic complications: None Was Beta Samia taken within 24 hours: N/A Was Clonidine taken within 24 hours: N/A Social No alcohol and No tobacco Airway Submandibular: Other (Limited lower jaw extrusion) Cervical ROM: within normal limits (Has pain with normal ROM) Mallampati: Class II Dentition: full Pulmonary Asthma CV/HEM Hypertension METS > 4 Denies MN, CAD, afib/aflutter Denies CKD, hx of nephrolithiasis Na 134 Glucose 435 Hepatic None reported GI Gastroesophageal Reflux Disease (No symptoms on empty stomach, well controlled with meds) Metabolic Diabetes Mellitus (On insulin ), Hyperlipidemia and Thyroid Disease (1994 had total thyroidectomy for cancer ) Obese Musc/skel Lower Back Pain, Osteoarthritis/DJD and Weakness Spinal stenosis Radiculopathy LE weakness left leg Denies NSAID use Neuropsych Anxiety and Neuropathy Anesthetic Plan ASA status: 3 Anesthesia: Anesthesia Evaluation and General Other: We discussed risk and benefits of general anesthesia including PONV, sore throat (sometimes severe), corneal abrasion, positioning and peripheral nerve injuries, life threatening allergic reaction, post operative ICU admission requiring prolonged intubation, aspiration, stroke, blindness, heart attack, , and rare incidences of recall. Patient consents to proceed with general anesthesia. Hyperglycemic today, glucose 435. Attempted to call patient, however unable to get through to patient. Voicemail left. Risk of > 500 ml blood loss (7ml/kg in children): No Medications/Allergies Home Medications Medication Instructions Recorded Confirmed Last Taken Type albuterol sulfate 90 mcg/actuation 2 puff inhalation QID PRN 10/16/19 11/20/21 Unknown History aerosol inhaler (ProAir HFA) Shortness Of Breath fenofibrate 160 mg tablet 160 mg PO DAILY #90 tabs 04/29/20 11/20/21 Unknown Rx mupirocin 2 % topical ointment 1 applic topical BID #22 grams 09/08/20 11/20/21 Unknown Rx cholecalciferol (vitamin D3) 125 15,000 unit PO DAILY 11/18/20 11/20/21 Unknown History mcg (5,000 unit) tablet (Vitamin D3) insulin detemir U-100 100 unit/mL 32 unit (0.32 mL) SUBCUT BID #15 mL 11/18/20 11/20/21 Unknown Rx (3 mL) subcutaneous pen (Levemir FlexTouch U-100 Insulin) insulin lispro 100 unit/mL 15 unit (0.15 mL) SUBCUT TID #15 mL 11/18/20 11/20/21 Unknown Rx subcutaneous pen (Humalog KwikPen (U-100) Insulin) acetaminophen 325 mg tablet 325 mg PO QID PRN Pain 12/29/20 11/20/21 Unknown History (Tylenol) Levo-T 200 mcg tablet 200 mcg PO DAILY NO Euthyrox #90 01/27/21 11/20/21 Unknown Rx (levothyroxine) tabs levothyroxine 25 mcg tablet 12.5 mcg PO DAILY NO Euthyrox #45 01/27/21 11/20/21 Unknown Rx (Levo-T) tabs flash glucose scanning reader #1 ea 05/21/21 11/10/21 Unknown Rx (FreeStyle Karishma 2 [place]) flash glucose sensor (FreeStyle #3 ea 05/21/21 11/10/21 Unknown Rx Karishma 14 Day Sensor kit) flash glucose sensor (FreeStyle #6 ea 05/21/21 11/10/21 Unknown Rx Karishma 2 Sensor kit) cetirizine 10 mg tablet (Zyrtec) 10 mg PO DAILY PRN allergy 05/22/21 11/20/21 Unknown Rx symptoms #30 tabs fluticasone propionate 50 1 spray intranasal BID PRN nasal 05/22/21 11/20/21 Unknown Rx mcg/actuation nasal congestion #16 grams spray,suspension insulin pump cartridge #30 ea 05/25/21 11/10/21 Unknown Rx insulin pump controller (Omnipod #1 ea 05/25/21 11/10/21 Unknown Rx DASH PDM Kit (Gen 4)) amlodipine 5 mg tablet 5 mg PO DAILY #90 tabs 06/30/21 11/20/21 Unknown Rx hydroxyzine pamoate 25 mg capsule 25 mg PO BID #180 caps 06/30/21 11/20/21 Unknown Rx lisinopril 20 mg tablet 20 mg PO DAILY #90 tabs 06/30/21 11/20/21 Unknown Rx rosuvastatin 40 mg tablet (Crestor) 40 mg PO DAILY #90 tabs 06/30/21 11/20/21 Unknown Rx venlafaxine 75 mg capsule,extended 75 mg PO DAILY #90 caps 06/30/21 11/20/21 Unknown Rx release 24 hr (Effexor XR) evolocumab 140 mg/mL subcutaneous 140 mg SUBCUT .every 14 days #2 mL 07/04/21 11/20/21 Unknown Rx pen injector (Repatha SureClick) pantoprazole 40 mg tablet,delayed 40 mg PO DAILY #90 tabs 08/28/21 11/20/21 Unknown Rx release (Protonix) insulin lispro 100 unit/mL See Rx Instructions SUBCUT 09/15/21 11/20/21 Unknown Rx subcutaneous solution (Humalog .COMPLEX #30 mL U-100 Insulin) gabapentin 300 mg capsule 900 mg PO QID pain #720 caps 11/09/21 11/20/21 Unknown Rx Allergies Allergy/AdvReac Type Severity Reaction Status Date / Time No Known Allergies Allergy Verified 11/20/21 08:13 [facility] Anesthesia Medical History Acid reflux Adult hypothyroidism Allergic rhinitis due to allergen Anxiety with depression Arthritis right hand 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 Diabetes mellitus with hyperglycemia, with long-term current use of insulin Environmental and seasonal allergies Essential (primary) hypertension Mixed hyperlipidemia Neuropathy due to herpes zoster S/P extracorporeal shock wave therapy ureteral stent placement Vitamin D deficiency Surgical History History of lipoma Back 1990 and abdomen History of reduction surgery of left breast History of reduction surgery of right breast History of thyroidectomy History of tubal ligation Family History Other Diabetes Heart disease Hypertension Social History Smoking and tobacco status: former smoker Second hand smoke exposure: No Smoking risk assessment/counseling performed?: No Alcohol intake: never Desire information about alcohol rehabilitation?: No Counseling given: No Desire information about substance/drug rehabilitation?: No Counseling given: No Adopted: No Caregiver/support person: No Lives independently: Yes Household members: none Housing: House Marital status: service: No History of recent travel: No Current gender identity: Female Data Anesthesia : 11/20/21 08:30 Cardiac Studies: No Data to Display
[2021-11-20 09:29] LABS: Anion Gap 21.3 (5-19); Blood Urea Nitrogen 14 mg/dL (6-20); Calcium 8.9 mg/dL (8.5-10.5); Carbon Dioxide 22 mmol/L (22-29); Chloride 95 mmol/L (98-107); Glomerular Filtration Rate 128.6 mL/min (90-130); Glucose 435 mg/dL (65-115); Osmolality Calculated 297 mOsm/kg (285-295); Potassium 4.3 mmol/L (3.5-5.1); Sodium 134 mmol/L (136-145)
[2021-11-27] VITALS (10 sets, daily range): BP systolic 108–152; BP diastolic 65–80; PULSE 82–96; RESP 10–21; TEMP 36.5–37.5; O2SAT 94–98
--- NOTE | 2021-11-27 | XR_ITS ---
WS: [id number] Lumbar spine, C-arm fluoroscopy, 11/27/2021 Clinical Data: L4-5 decompression Comparison: CT lumbar spine, 10/16/2019 Findings: Dr. Sen identified a lumbar disc level. XR/XR lumbar spine 1V [id number] Impression: Identification of lower lumbar disc level.
--- NOTE | 2021-11-27 | SCC_ITS ---
Procedure done: 1. L4-5 laminectomy with partial facetectomies. 8 seconds of fluoroscopic guidance, for a cumulative dose of 3.0 mGy, was provided to Dr. Sen by the radiology department. C-arm images of the lumbar spine were saved for the patient's permanent record. ZAK
[2021-11-27] MEDS: sodium chloride 0.9% 1,000 ML 30 ML IV (11:09)
[2021-11-27 11:14] LABS: Glucose Point of Care 147 mg/dL (70-110)
[2021-11-27] MEDS: gabapentin 300 mg Capsule 900 MG PO (11:25)
--- NOTE | 2021-11-27 13:38 | P.ANESUD_ITS ---
Pre-Anesthetic Update Pre-Anesthetic Assessment: Date of Surgery/Procedure: 11/27/21 Preop Stephanie gnosis: Lumbar radiculopathy Proposed Procedure: Operation Date: 11/27/21 12:05 Proposed Procedures p Lumbar Spine Decompression César. L4/5(Not Applicable) - Ciaran Sen, DO Any changes to Pre-Anesthetic Assessment?: No Vitals: Temperature 97.7 F 11/27/21 10:50 Temperature Source Temporal Artery S can 11/27/21 10:50 Pulse Rate 96 11/27/21 10:50 Respiratory Rate 18 11/27/21 10:50 Blood Pressure 113/79 11/27/21 10:50 Blood Pressure Mouna n 90 11/27/21 10:50 Pulse Oximetry 97 11/27/21 10:50 Oxygen Delivery Me thod 11/27/21 10:50 Exam: Pre-Anes Outpt Exam: alert, oriented x 3, clear to auscultation bilaterally and regular rate & rhythm Cardiac Studies: No Data to Display
[2021-11-27] MEDS: ceFAZolin 2,000 MG in sodium chloride 0.9% (plus) 50 ML 100 MG IV (14:00)
--- NOTE | 2021-11-27 15:19 | PM.OP ---
Operative Report Date of procedure: November 27, 2021 Pre-op diagnosis: Preop Diagnosis Lumbar stenosis with neurogenic claudication Post-op diagnosis: same Procedure done: 1. L4-5 laminectomy with partial facetectomies. Surgeon: Ciaran Sen Estimated blood loss (mL): 20 Procedure: L4-5 laminectomy with partial facetectomies Patient was brought to the operative suite after undergoing anesthesia was placed into the prone position. All areas impingement were padded. Patient was prepped and draped also fashion. Skin incision made over the L4-5 level. This confirmed under C-arm guidance. Subperiosteal dissection was made out to the facet joints bilaterally. The retractors were placed. Curvature was placed underneath the L4 lamina. This confirmed under C-arm guidance. High-speed bur was then used to take down the lamina along with the rongeurs and Kerrison rongeurs. The curved curette was then used to undermine the remaining lamina lamina and then a Kerrison rongeur was used to pressure of the laminectomy. The medial aspect dissection was taken down bilaterally with a high-speed bur and Kerrison rongeur. Ligamentum flavum was taken down from L4-L5. The ligament spine be taken. Particular on the lateral recess. The L4 nerve root was traced out the L4-5 foramen bilaterally. The L5 nerve was traced around the L5 pedicle. Wounds were irrigated and closed with Vicryl and Monocryl suture. Sterile dressings were applied and patient was transferred to the PACU in stable condition.
--- NOTE | 2021-11-27 15:26 | P.PCN_ITS ---
PACU note Narrative: VSS, Good respiratory effort, report to VOCATIONAL DIRECTOR Exam: awake
--- NOTE | 2021-11-27 15:26 | PM.PACU ---
PACU note Narrative: VSS, Good respiratory effort, report to GLASS BEVELER Exam: awake
[2021-11-27] MEDS: fentaNYL 50 mcg/mL INJ 2mL IVP (15:33)
[2021-11-27 15:54] LABS: Glucose Point of Care 199 mg/dL (70-110)
[2021-11-27] MEDS: HYDROcodone-acetaminophen 5-325 mg Tablet 1 TAB PO (16:17)
--- NOTE | 2021-11-27 16:56 | SUR.PHASEII ---
16:45 ROM AND SENSATION ALL 4 EXTREMITIES.
--- NOTE | 2021-11-27 16:58 | SUR.PHASEII ---
DRESSING DRY AND INTACT.
--- NOTE | 2021-11-30 16:37 | W.PM.OPSUD ---
Surgery/Procedure H&P Update DATE OF PROCEDURE: November 30, 2021 DATE H&P PERFORMED: 11/10/21 H&P UPDATE INFORMATION: I have reviewed H&P completed within last 30 days, I have examined patient prior to procedure and No changes to prior documentation PREOP DIAGNOSIS: Lumbar radiculopathy PLANNED PROCEDURE: Operation Date: 11/27/21 12:05 Proposed Procedures p Lumbar Spine Decompression César. L4/5(Not Applicable) - Ciaran Sen DO
== END 2021-11-27 16:50 | disposition home or self-care (01) ==
PROVIDERS: Anesthesiology; PCP Nurse Practitioner; Visit Provider Orthopaedic Surgery
PROC: (CPT 63005; principal; 2021-11-27 12:05)
DX: M48.062 Spinal stenosis, lumbar region with neurogenic claudication (principal); I10 Essential (primary) hypertension; K21.9 Gastro-esophageal reflux disease without esophagitis; E11.40 Type 2 diabetes mellitus with diabetic neuropathy, unspecified; Z79.4 Long term (current) use of insulin; E66.9 Obesity, unspecified; Z68.31 Body mass index [BMI] 31.0-31.9, adult; F41.9 Anxiety disorder, unspecified; E03.9 Hypothyroidism, unspecified; E78.2 Mixed hyperlipidemia; Z87.891 Personal history of nicotine dependence
CPT/HCPCS: 63047; 36415; 36416; 72020; 76000; 80048; 82962; J1100; J1170; J2405; J3010; J3490; J7030

== ENCOUNTER 2021-11-29 14:37 | Inpatient (IN) | payer BC, SELFPAY ==
[2021-11-29] VITALS (29 sets, daily range): BP systolic 100–179; BP diastolic 56–106; PULSE 68–120; RESP 9–22; TEMP 36.4–36.5; O2SAT 95–100; BMI 30.9
--- NOTE | 2021-11-29 15:59 | W.ED.BACK ---
HPI - Back Pain/Injury General: Chief Complaint: Back Pain/Injury Stated Complaint: Post back surgery, severe pain Time Seen by Provider: 11/29/21 15:38 History of Present Illness: 56-year-old female presenting today with severe back pain, nausea, vomiting. Patient notes that she had back surgery on Tuesday. After being discharged started to have severe pain. Also noting that she has been nauseous with frequent vomiting. He is a type II diabetic. But has not checked her blood glucose in over 48 hours. Has not been taking her insulin as prescribed. No prior history of DKA or HHS. She notes that she has been vomiting frequently. Has been unable to eat or drink. Has attempted to take her oxycodone. But was unable to tolerate because she was vomiting it upwards. Noting it was not helping her pain anyways. She denies fevers or chills. She denies dysuria or polyuria. She denies chest pain or shortness of breath. 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 Diabetes mellitus with hyperglycemia, with long-term current use of insulin Environmental and seasonal allergies Essential (primary) hypertension Mixed hyperlipidemia Neuropathy due to herpes zoster S/P extracorporeal shock wave therapy ureteral stent placement Vitamin D deficiency Surgical History History of lipoma Back 1990 and abdomen History of reduction surgery of left breast History of reduction surgery of right breast History of thyroidectomy History of tubal ligation Family History Other Diabetes Heart disease Hypertension Social History Smoking and tobacco status: former smoker Second hand smoke exposure: No Smoking risk assessment/counseling performed?: No Alcohol intake: never Desire information about alcohol rehabilitation?: No Counseling given: No Desire information about substance/drug rehabilitation?: No Counseling given: No Adopted: No Caregiver/support person: No Lives independently: Yes Household members: none Housing: House Marital status: service: No History of recent travel: No Current gender identity: Female Physical Exam Const: COMMON NORMALS: no acute distress, patient oriented x3 and alert GENERAL APPEARANCE: cooperative ORIENTATION/CONSCIOUSNESS: Yes awake, Yes oriented to person, Yes oriented to place and Yes oriented to time HENMT: COMMON NORMALS: normocephalic, atraumatic, external ears normal, Normal external nose present and moist oral mucous membranes HEAD & SCALP: normal to inspection, normocephalic and atraumatic NOSE: Normal external nose present GENERAL EAR: hearing grossly impaired EXTERNAL EAR: Yes external ears normal Eye: COMMON NORMALS: Equal, round and reactive pupils present, EOMs intact bilaterally, conjunctivae normal and no scleral icterus GENERAL EYE: appearance normal, both eyes and all related structures EYELID: eyelids normal CONJUNCTIVA: Yes conjunctivae normal SCLERA: sclerae normal PUPIL: Yes Equal, round and reactive pupils present Neck/C-Spine: COMMON NORMALS: full ROM, supple and no JVD GENERAL: Yes normal visual inspection Lymph: LYMPHATIC: no lymphadenopathy noted and no lymphedema noted Chest: COMMONS NORMALS: normal inspection of the chest Resp: COMMON NORMALS: normal respiratory effort, No retractions and No use of accessory muscles Cardio: COMMON NORMALS: no JVD, regular rate and regular rhythm RATE: regular rate RHYTHM: regular rhythm GI: COMMON NORMALS: Normal to inspection, nondistended, normoactive bowel sounds present : COMMON NORMALS: Yes no CVA tenderness BLADDER/KIDNEY EXAM: Yes no CVA tenderness Back/Pelvis: COMMON NORMALS: no CVA tenderness and thoracic and lumbar spine normal to inspection Extremity: COMMON NORMALS: normal to inspection, full ROM and capillary refill normal GENERAL: Yes normal exam except as noted Neuro: COMMON NORMALS: patient oriented x3, CN's II-XII intact bilaterally, moves all extremities, no focal motor deficits, no sensory deficits noted and gait normal SENSORIUM/ORIENTATION: Yes alert, Yes oriented to person, Yes oriented to place and Yes oriented to time Psych: COMMON NORMALS: mental status grossly normal, Normal thought process present, cooperative and normal affect THOUGHT PROCESS: Normal thought process present Skin: COMMON NORMALS: no rashes or lesions noted and no wounds GENERAL SKIN EXAM: no rashes or lesions noted Course Vital Signs: Vital signs: Vital Signs Temperature 97.7 F 11/29/21 14:45 Pulse Rate 113 H 11/29/21 14:45 Respiratory Rate 22 H 11/29/21 16:26 Blood Pressure 138/77 11/29/21 14:45 Pulse Oximetry 99 11/29/21 14:45 Oxygen Delivery Me thod 11/29/21 14:45 MDM - Back Pain/Injury Medical Decision Making 56-year-old postoperative patient presenting today with nausea vomiting diarrhea. Type II diabetic. Blood glucose significantly elevated into the high 300s. Smell of ketones present in the room. CMP with dangerously low bicarb of 6. Patient started on insulin drip and bolus. Potassium over 5. Will admit to the ICU for further evaluation management of diabetic ketoacidosis. Labs : 11/29/21 16:10 11/29/21 16:10 Laboratory Results WBC 18.2 10^3/uL (4.0-10.0) H 11/29/21 16:10 RBC 4.70 10^6/uL (4.1-5.3) 11/29/21 16:10 Hgb 14.1 g/dL (11.5-15.3) 11/29/21 16:10 Hct 44.7 % (37.0-47.0) 11/29/21 16:10 MCV 95.1 fl (81-99) 11/29/21 16:10 MCH 30.0 pg (28.0-34.0) 11/29/21 16:10 MCHC 31.5 g/dL (30.0-36.0) 11/29/21 16:10 RDW 13.1 % (12.1-15.1) 11/29/21 16:10 Plt Count 323 10^3/cmm (130-400) 11/29/21 16:10 MPV 10.6 fL (7.4-10.4) H 11/29/21 16:10 Neut % (Auto) 83.8 % 11/29/21 16:10 Lymph % (Auto) 5.1 % 11/29/21 16:10 [place] % (Auto) 7.3 % 11/29/21 16:10 Eos % (Auto) 0.0 % 11/29/21 16:10 Baso % (Auto) 0.7 % 11/29/21 16:10 Neut # (Auto) 15.26 10^3/uL (1.8-7.7) H 11/29/21 16:10 Lymph # (Auto) 0.9 10^3/uL (0.8-4.8) 11/29/21 16:10 [place] # (Auto) 1.3 10^3/uL (0.2-0.9) H 11/29/21 16:10 Eos # (Auto) 0.0 10^3/uL (0.0-0.8) 11/29/21 16:10 Baso # (Auto) 0.1 10^3/uL (0.0-0.1) 11/29/21 16:10 Nucleated RBC % (auto) 0 % 11/29/21 16:10 Nucleated RBCs # 0.0 /100WBC 11/29/21 16:10 Sodium 136 mmol/L (136-145) 11/29/21 16:10 Potassium 5.2 mmol/L (3.5-5.1) H 11/29/21 16:10 Chloride 102 mmol/L (98-107) 11/29/21 16:10 Carbon Dioxide 6 mmol/L (22-29) L* 11/29/21 16:10 Anion Gap 33.2 (5-19) H 11/29/21 16:10 BUN 14 mg/dL (6-20) 11/29/21 16:10 Creatinine 0.9 mg/dL (0.5-0.9) 11/29/21 16:10 GFR Calculation 65.2 mL/min (90-130) L 11/29/21 16:10 Glucose 436 mg/dL (65-115) H 11/29/21 16:10 POC Glucose 396 mg/dL (70-110) H 11/29/21 16:08 Calculated Osmolality 301 mOsm/kg (285-295) H 11/29/21 16:10 Calcium 10.0 mg/dL (8.5-10.5) 11/29/21 16:10 Total Bilirubin 0.3 mg/dL (0.15-1.2) 11/29/21 16:10 AST 20 U/L (0-32) 11/29/21 16:10 ALT 23 U/L (0-33) 11/29/21 16:10 Alkaline Phosphatase 177 U/L (35-105) H 11/29/21 16:10 Total Protein 8.6 g/dL (6.6-8.7) 11/29/21 16:10 Albumin 4.5 g/dL (3.5-5.2) 11/29/21 16:10 Globulin 4.1 g/dL (1.3-4.6) 11/29/21 16:10 Discharge Plan Discharge Patient Disposition: Admitted As Inpatient Clinical Impression: DKA, type 2 Condition: Stable Prescriptions: No Action fenofibrate 160 mg tablet 160 mg PO DAILY Qty: 90 3RF acetaminophen [Tylenol] 325 mg tablet 325 mg PO QID PRN (Reason: Pain) albuterol sulfate [ProAir HFA] 90 mcg/actuation HFA aerosol inhaler 2 puff INHALATION QID PRN (Reason: Shortness Of Breath) mupirocin 2 % ointment 1 applic topical BID Qty: 22 0RF cholecalciferol (vitamin D3) [Vitamin D3] 125 mcg (5,000 unit) tablet 15,000 unit PO DAILY cetirizine [Zyrtec] 10 mg tablet 10 mg PO DAILY PRN (Reason: allergy symptoms) Qty: 30 1RF fluticasone propionate 50 mcg/actuation spray,suspension 1 spray intranasal BID PRN (Reason: nasal congestion) Qty: 16 1RF Rx Instructions: administer into each nostril amlodipine 5 mg tablet 5 mg PO DAILY Qty: 90 0RF hydroxyzine pamoate 25 mg capsule 25 mg PO BID Qty: 180 0RF lisinopril 20 mg tablet 20 mg PO DAILY Qty: 90 0RF Rx Instructions: i rosuvastatin [Crestor] 40 mg tablet 40 mg PO DAILY Qty: 90 0RF venlafaxine [Effexor XR] 75 mg capsule,extended release 24hr 75 mg PO DAILY Qty: 90 0RF levothyroxine [Levo-T] 200 mcg tablet 200 mcg PO DAILY Qty: 90 3RF Rx Instructions: Take one tablet a day one hour before breakfast and other medicine. levothyroxine [Levo-T] 25 mcg tablet 12.5 mcg PO DAILY Qty: 45 3RF Rx Instructions: Take one half tablet by mouth daily. (DME) FreeStyle Karishma 2 [place] Misc See Rx Instructions .Route Qty: 1 0RF Rx Instructions: Check BS 4 times a day. (DME) FreeStyle Karishma 14 Day Sensor Kit See Rx Instructions .ROUTE .MEDSUPPLY Qty: 3 3RF Rx Instructions: check blood sugar 4 times (DME) FreeStyle Karishma 2 Sensor Kit See Rx Instructions .Route Qty: 6 3RF Rx Instructions: Change every 14 days. (DME) Omnipod DASH PDM Kit (Gen 4) [facility] [place] Instructions .Route Qty: 1 0RF Rx Instructions: As directed (DME) insulin pump cartridge Cartridge See Rx Instructions .Route Qty: 30 3RF Rx Instructions: As directed Repatha SureClick 140 mg/mL pen injector 140 mg SUBCUT .every 14 days Qty: 2 2RF pantoprazole [Protonix] 40 mg tablet,delayed release (DR/EC) 40 mg PO DAILY Qty: 90 1RF insulin lispro [Humalog U-100 Insulin] 100 unit/mL solution See Rx Instructions SUBCUT .COMPLEX Qty: 30 3RF Rx Instructions: Basal setting is 1.5 from 6 am to 12 am and 1.2 from 12 am to 6 am 32.4 u/day. SUBCUT 24 hour dosing; gabapentin 300 mg capsule 900 mg PO QID Qty: 720 0RF hydrocodone-acetaminophen 5-325 mg tablet 1 - 2 tab PO .Q4-6H Qty: 40 0RF Referrals: Ciaran Sen DO [Primary Care Provider] - Coding Level of Care Code ED Remote Sensing Technician for Chg Fwd Exam Comprehensive
[2021-11-29 16:10] LABS: Glucose Point of Care 396 mg/dL (70-110)
[2021-11-29 16:19] LABS: Basophils # 0.1 10^3/uL (0.0-0.1); Basophils % 0.7 %; Hematocrit 44.7 % (37.0-47.0); Hemoglobin 14.1 g/dL (11.5-15.3); Lymphocytes # 0.9 10^3/uL (0.8-4.8); Lymphocytes % 5.1 %; Mean Corpuscular HGB Conc 31.5 g/dL (30.0-36.0); Mean Corpuscular Volume 95.1 fl (81-99); Mean Platelet Volume 10.6 fL (7.4-10.4); Monocytes # 1.3 10^3/uL (0.2-0.9); Monocytes % 7.3 %; Neutrophils # 15.26 10^3/uL (1.8-7.7); Neutrophils % 83.8 %; Nucleated Red Blood Cells % 0 %; Platelet Count 323 10^3/cmm (130-400); Red Cell Distribution Width 13.1 % (12.1-15.1); White Blood Count 18.2 10^3/uL (4.0-10.0)
[2021-11-29] MEDS: haloperidol inj 5 mg/mL INJ 1 mL 2 MG IVP (16:25)
[2021-11-29] MEDS: acetaminophen 500 mg Tablet 1000 MG PO (16:25)
[2021-11-29] MEDS: HYDROmorphone 1 mg/mL INJ 1 mL IVP (16:26)
[2021-11-29] MEDS: ondansetron 2 mg/ML SDV 2 mL 8 MG IVP (16:26)
[2021-11-29] MEDS: ketorolac 30 mg/mL INJ 15 MG IVP (16:26)
[2021-11-29] MEDS: sodium chloride 0.9% 1,000 ML 999 ML IV (16:26)
[2021-11-29 16:42] LABS: Alanine Aminotransferase 23 U/L (0-33); Albumin Level 4.5 g/dL (3.5-5.2); Alkaline Phosphatase 177 U/L (35-105); Anion Gap 33.2 (5-19); Aspartate Amino Transferase 20 U/L (0-32); Blood Urea Nitrogen 14 mg/dL (6-20); Chloride 102 mmol/L (98-107); Globulin 4.1 g/dL (1.3-4.6); Glomerular Filtration Rate 65.2 mL/min (90-130); Glucose 436 mg/dL (65-115); Osmolality Calculated 301 mOsm/kg (285-295); Potassium 5.2 mmol/L (3.5-5.1); Sodium 136 mmol/L (136-145); Total Bilirubin 0.3 mg/dL (0.15-1.2); Total Protein 8.6 g/dL (6.6-8.7)
[2021-11-29 16:56] LABS: Carbon Dioxide 6 mmol/L (22-29)
[2021-11-29 17:10] LABS: Base Excess VBG -25.6 mmol/L (-3.0-3.0); Blood Gas Allen Test Pos; Blood Gas Operator Identificat MONRO; Blood Gas Sample Type Venous; HCO3 VBG 4.8 mmol/L (24-28); PCO2 VBG 21.1 mmHg (41-51); PO2 VBG 34.5 mmHg (25-40); Venous Blood Gas Hematocrit 41.8 % (37-47)
[2021-11-29 17:11] LABS: Oxygen Device ROOM AIR
[2021-11-29 17:12] LABS: pH VBG 6.97 (7.32-7.42)
--- NOTE | 2021-11-29 17:44 | XRR_ITS ---
PROCEDURE INFORMATION: Exam: XR Chest Exam date and time: 11/29/2021 6:33 PM Age: 56 years old Clinical indication: Fever TECHNIQUE: Imaging protocol: Radiologic exam of the chest. Views: 1 view. COMPARISON: CR XR cervical spine fl/ex [id number] 05/27/2020 9:53 AM FINDINGS: Lungs: Unremarkable. No consolidation. Pleural spaces: Unremarkable. No pleural effusion. No pneumothorax. Heart/Mediastinum: Unremarkable. No cardiomegaly. Bones/joints: No acute findings. XR/XR chest 1V portable [id number] IMPRESSION: No acute findings.
[2021-11-29] MEDS: insulin regular-human 250 UNIT in sodium chloride 0.9% 250 ML 9.5 UNIT IV (17:45)
[2021-11-29 17:49] LABS: Glucose Point of Care 378 mg/dL (70-110)
--- NOTE | 2021-11-29 18:19 | PM.HP ---
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 Recently also had undergone L4-5 laminectomy with partial facetectomies due to lumbar stenosis with neurogenic claudication, I supposed to following up with orthopedics in office on 12/10, has had back pain, but not other symptoms. She has been having elevated blood glucose. In ER she is found to be dehydrated, with ketone odor, with sinus tachycardia, leukocytosis 18.2, hemoconcentration, with metabolic acidosis, bicarb of 6, anion gap 33.2. ABG 6.97/21.1/34.5. Sodium 136. Potassium 5.2. Blood glucose 436. Alk phos 177. She received IVF bolus, he is being started on insulin drip. Review of Systems Const: Reports: fatigue and malaise; Denies: fever(s), chills or body aches Eyes: Denies: change in vision, eye discomfort or eye redness ENMT: Denies: throat pain, oral sores or ear or mastoid pain Card: Denies: chest pain, edema, pre-syncope or dyspnea on exertion Resp: Denies: dyspnea, productive cough, change in phlegm color or hemoptysis GI: Denies: abdominal pain, nausea, vomiting, diarrhea, constipation, hematochezia or melena : Denies: flank pain, urinary frequency or hematuria Musc: Reports: back pain; Denies: joint swelling or joint redness Skin/Breast: Denies: rash or new lesions Neuro: Denies: headache(s), numbness in extremities, weakness in extremities, dizziness, confusion or seizure-like activity Endo: Denies: polyuria or polydipsia Callum/Lymph: Denies: easy bleeding or tender lymph nodes All/Imm: Denies: urticaria or tongue swelling Medications/Allergies Home Medications Medication Instructions Recorded Confirmed Last Taken Type albuterol sulfate 90 mcg/actuation 2 puff inhalation QID PRN 10/16/19 11/27/21 Unknown History aerosol inhaler (ProAir HFA) Shortness Of Breath fenofibrate 160 mg tablet 160 mg PO DAILY #90 tabs 04/29/20 11/27/21 11/26/21 Rx mupirocin 2 % topical ointment 1 applic topical BID #22 grams 09/08/20 11/27/21 11/26/21 Rx cholecalciferol (vitamin D3) 125 15,000 unit PO DAILY 11/18/20 11/27/21 11/26/21 History mcg (5,000 unit) tablet (Vitamin D3) acetaminophen 325 mg tablet 325 mg PO QID PRN Pain 12/29/20 11/27/21 Unknown History (Tylenol) Levo-T 200 mcg tablet 200 mcg PO DAILY NO Euthyrox #90 01/27/21 11/27/21 11/26/21 Rx (levothyroxine) tabs flash glucose scanning reader #1 ea 05/21/21 11/10/21 Unknown Rx (FreeStyle Karishma 2 [place]) flash glucose sensor (FreeStyle #3 ea 05/21/21 11/10/21 Unknown Rx Karishma 14 Day Sensor kit) flash glucose sensor (FreeStyle #6 ea 05/21/21 11/10/21 Unknown Rx Karishma 2 Sensor kit) cetirizine 10 mg tablet (Zyrtec) 10 mg PO DAILY PRN allergy 05/22/21 11/27/21 Unknown Rx symptoms #30 tabs fluticasone propionate 50 1 spray intranasal BID PRN nasal 05/22/21 11/27/21 Unknown Rx mcg/actuation nasal congestion #16 grams spray,suspension insulin pump cartridge #30 ea 05/25/21 11/10/21 Unknown Rx insulin pump controller (Omnipod #1 ea 05/25/21 11/10/21 Unknown Rx DASH PDM Kit (Gen 4)) amlodipine 5 mg tablet 5 mg PO DAILY #90 tabs 06/30/21 11/27/21 11/27/21 06:00 Rx hydroxyzine pamoate 25 mg capsule 25 mg PO BID #180 caps 06/30/21 11/27/21 11/26/21 Rx lisinopril 20 mg tablet 20 mg PO DAILY #90 tabs 06/30/21 11/27/21 11/27/21 09:00 Rx rosuvastatin 40 mg tablet (Crestor) 40 mg PO DAILY #90 tabs 06/30/21 11/27/21 11/26/21 Rx venlafaxine 75 mg capsule,extended 75 mg PO DAILY #90 caps 06/30/21 11/27/21 11/26/21 Rx release 24 hr (Effexor XR) pantoprazole 40 mg tablet,delayed 40 mg PO DAILY #90 tabs 08/28/21 11/27/21 11/26/21 Rx release (Protonix) insulin lispro 100 unit/mL See Rx Instructions SUBCUT 09/15/21 11/27/21 11/27/21 09:00 Rx subcutaneous solution (Humalog .COMPLEX #30 mL U-100 Insulin) gabapentin 300 mg capsule 900 mg PO QID pain #720 caps 11/09/21 11/27/21 11/26/21 Rx levothyroxine 25 mcg tablet 25 mcg PO DAILY NO Euthyrox 11/29/21 11/29/21 11/29/21 History (Levo-T) Allergies Allergy/AdvReac Type Severity Reaction Status Date / Time No Known Allergies Allergy Verified 11/27/21 10:58 PFSH Acute PFSH: Medical History Acid reflux Adult hypothyroidism Allergic rhinitis due to allergen Anxiety with depression Arthritis right hand 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 Diabetes mellitus with hyperglycemia, with long-term current use of insulin Environmental and seasonal allergies Essential (primary) hypertension Mixed hyperlipidemia Neuropathy due to herpes zoster S/P extracorporeal shock wave therapy ureteral stent placement Vitamin D deficiency Surgical History History of lipoma Back 1990 and abdomen History of reduction surgery of left breast History of reduction surgery of right breast History of thyroidectomy History of tubal ligation Family History Other Diabetes Heart disease Hypertension Social History (Updated 11/29/21 @ 18:52 by Mamadou Ross MD) Smoking and tobacco status: former smoker Second hand smoke exposure: No Smoking risk assessment/counseling performed?: No Alcohol intake: never Desire information about alcohol rehabilitation?: No Counseling given: No Desire information about substance/drug rehabilitation?: No Counseling given: No Adopted: No Caregiver/support person: No Lives independently: Yes Household members: none Housing: House Marital status: service: No Current occupational status: employed History of recent travel: No Current gender identity: Female Vitals/I&O/Wt Last Vital Signs Temp 97.7 F 11/29/21 14:45 Pulse 115 H 11/29/21 17:45 Resp 19 H 11/29/21 17:45 BP 129/105 11/29/21 17:45 Pulse Ox 100 11/29/21 17:45 O2 Del Method 11/29/21 14:45 11/29/21 11/29/21 11/29/21 06:59 14:59 22:59 Intake Total 1000 / 1000 Balance 1000 / 1000 Weight last 48 hrs Weight 87.09 kg Physical Exam Narrative: Mother at bedside Const: COMMON NORMALS: patient oriented x3 and alert GENERAL APPEARANCE: cooperative ORIENTATION/CONSCIOUSNESS: Yes awake HENMT: COMMON NORMALS: oropharynx normal OTHER: Dry MM Neck/C-Spine: COMMON NORMALS: no JVD Resp: COMMON NORMALS: normal respiratory effort and clear to auscultation bilaterally AUSCULTATION: clear to auscultation bilaterally Cardio: COMMON NORMALS: no JVD, regular rhythm, S1 normal heart sound present, S2 normal heart sound present and No murmurs present (Cardio) RATE: tachycardic RHYTHM: regular rhythm HEART SOUNDS: S1 normal heart sound present and S2 normal heart sound present GI: COMMON NORMALS: Normal to inspection, nondistended, normoactive bowel sounds present, Soft to palpation and non-tender PALPATION: Yes Soft to palpation Back/Pelvis: OTHER: Postoperative dressing, no surrounding drainage or erythema, mild dried blood strikethrough. Extremity: COMMON NORMALS: no joint enlargement and no pedal edema Neuro: COMMON NORMALS: patient oriented x3 and moves all extremities SENSORIUM/ORIENTATION: Yes alert Skin: COMMON NORMALS: no rashes or lesions noted GENERAL SKIN EXAM: no rashes or lesions noted Data : 11/29/21 16:10 11/29/21 16:10 A&P Assessment and plan (1) DKA, type 2: Insulin drip, IV hydration, follow-up chemistries. Replace electrolytes as needed. UA obtained, not suggestive of UTI. Chest x-ray not suggestive of pneumonia by preliminary look. Does have leukocytosis, tachycardia, but these appear to be secondary to DKA itself. On symptoms and exam no suggestion of acute infection/sepsis. Monitor for any changes in symptoms or condition, including fever, etc. She has insulin pump at home, has insulin, but has run out of pods and pharmacy has been closed, has not been able to administer insulin in several days. Will need supplies at discharge. Reinforced with her and monitor to make sure to contact her provider in case of missing supplies so she does not miss insulin therapy given potentially severe complications. She has never had DKA before. Follow-up with endocrinology. (2) S/P lumbar laminectomy: Has been having pain. Some old dried bloody strikethrough, no fresh blood, no drainage, I do not appreciate surrounding erythema around dressing. Not likely wound infection at this juncture. Discussed with orthospine surgeon, they will visit with her as well tomorrow given recent surgery. Plan Metabolic acidosis: As above Alkaline phosphatase elevation: 177, suspect secondary to dehydration, reassess liver parameters. Pursue further evaluation in case persistently elevated. She has had no abdominal pain or other GI symptoms. GERD Hypothyroidism Allergic rhinitis Anxiety and depression Cancer of thyroid HTN HLD Herpes zoster neuropathy Other chronic conditions noted. Attestations Medical Necessity Statement*: Admission of over 2 midnights anticipated for assessment management of DKA Critical Care Time: The high probability of a clinically significant, sudden or life threatening deterioration of the patient's endocrine system(s) required my full and direct attention, intervention and personal management. The critical care time is as shown. This time is in addition to time spent performing any reported procedures but includes the following: x Data and vital sign review and interpretation x Patient assessment, examination and intervention x Documentation x Medication orders and management Critical Care Time (min): 50 Coding Level of Care Code Acute Implementation Specialist for [facility] Fwd Diagnoses DKA, type 2 E11.10 S/P lumbar laminectomy Z98.890
[2021-11-29 18:43] LABS: Add Urine Microscopic? YES; Bilirubin Urine Neg (Negative); Blood Urine 2+ (Negative); Glucose Urine UA 4+ (Normal); Ketones Urine 3+ (Negative); Leukocyte Esterase Urine Negative (Negative); Nitrate Urine Negative (Negative); Protein Urine 1+ (Negative); Specific Gravity, Urine 1.025 (1.005-1.030); Urine Appearance Hazy (CLEAR); Urine Color Yellow (Yellow); Urobilinogen Urine Norm (Negative); pH Urine 5 (5-7)
[2021-11-29 18:45] LABS: Bacteria Urine 2+ /hpf; WBC Urine RARE /hpf (0-5)
[2021-11-29 18:46] LABS: Add Urine Culture? No; Mucus Urine 1+ /hpf
[2021-11-29 18:55] LABS: Glucose Point of Care 387 mg/dL (70-110)
[2021-11-29] MEDS: enoxaparin 40 mg/0.4 mL Syringe SUBCUT (19:31)
[2021-11-29] MEDS: sodium chloride 0.45% 1,000 ML 200 ML IV (19:31)
[2021-11-29] MEDS: pantoprazole DR 40 mg Tablet PO (20:12)
[2021-11-29] MEDS: gabapentin 300 mg Capsule 900 MG PO (20:12)
[2021-11-29 22:30] LABS: Anion Gap 27.9 (5-19); Blood Urea Nitrogen 16 mg/dL (6-20); Calcium 9.3 mg/dL (8.5-10.5); Chloride 105 mmol/L (98-107); Glomerular Filtration Rate 74.7 mL/min (90-130); Glucose 242 mg/dL (65-115); Magnesium 2.2 mg/dL (1.7-2.3); Osmolality Calculated 291 mOsm/kg (285-295); Phosphorus 1.4 mg/dL (2.5-4.5); Potassium 3.9 mmol/L (3.5-5.1); Sodium 136 mmol/L (136-145)
[2021-11-29 22:39] LABS: Carbon Dioxide 7 mmol/L (22-29)
[2021-11-29] MEDS: dextrose 5%-ns + KCl 40 40 MEQ/1,000 ML BAG 125 MEQ IV (23:06)
[2021-11-30] VITALS (27 sets, daily range): BP systolic 105–156; BP diastolic 65–100; PULSE 94–116; RESP 10–22; TEMP 36.6–36.9; O2SAT 94–97
[2021-11-30 02:03] LABS: Glucose Point of Care 157 mg/dL (70-110)
[2021-11-30 02:03] LABS: Glucose Point of Care 162 mg/dL (70-110)
[2021-11-30 02:03] LABS: Glucose Point of Care 427 mg/dL (70-110)
[2021-11-30 02:03] LABS: Glucose Point of Care 302 mg/dL (70-110)
[2021-11-30 02:03] LABS: Glucose Point of Care 143 mg/dL (70-110)
[2021-11-30 02:03] LABS: Glucose Point of Care 345 mg/dL (70-110)
[2021-11-30 02:03] LABS: Glucose Point of Care 220 mg/dL (70-110)
[2021-11-30 02:30] LABS: Basophils # 0.1 10^3/uL (0.0-0.1); Basophils % 0.4 %; Eosinophils % 0.2 %; Hematocrit 37.9 % (37.0-47.0); Hemoglobin 12.5 g/dL (11.5-15.3); Lymphocytes # 1.4 10^3/uL (0.8-4.8); Mean Corpuscular Hemoglobin 30.2 pg (28.0-34.0); Mean Corpuscular Volume 91.5 fl (81-99); Mean Platelet Volume 10.1 fL (7.4-10.4); Monocytes # 1.1 10^3/uL (0.2-0.9); Monocytes % 8.6 %; Neutrophils % 77.2 %; Nucleated Red Blood Cells % 0 %; Platelet Count 263 10^3/cmm (130-400); Red Blood Count 4.14 10^6/uL (4.1-5.3); Red Cell Distribution Width 13.2 % (12.1-15.1); White Blood Count 12.7 10^3/uL (4.0-10.0)
[2021-11-30 02:53] LABS: Alanine Aminotransferase 18 U/L (0-33); Albumin Level 3.7 g/dL (3.5-5.2); Alkaline Phosphatase 141 U/L (35-105); Anion Gap 19.8 (5-19); Aspartate Amino Transferase 16 U/L (0-32); Blood Urea Nitrogen 16 mg/dL (6-20); Calcium 9.2 mg/dL (8.5-10.5); Carbon Dioxide 11 mmol/L (22-29); Chloride 109 mmol/L (98-107); Globulin 3.4 g/dL (1.3-4.6); Glomerular Filtration Rate 87.2 mL/min (90-130); Glucose 172 mg/dL (65-115); Osmolality Calculated 287 mOsm/kg (285-295); Potassium 3.8 mmol/L (3.5-5.1); Sodium 136 mmol/L (136-145); Total Bilirubin 0.2 mg/dL (0.15-1.2); Total Protein 7.1 g/dL (6.6-8.7)
[2021-11-30 02:55] LABS: Anion Gap 20.8 (5-19); Blood Urea Nitrogen 16 mg/dL (6-20); Calcium 9.2 mg/dL (8.5-10.5); Carbon Dioxide 11 mmol/L (22-29); Chloride 109 mmol/L (98-107); Glomerular Filtration Rate 87.2 mL/min (90-130); Glucose 174 mg/dL (65-115); Magnesium 2.1 mg/dL (1.7-2.3); Osmolality Calculated 289 mOsm/kg (285-295); Phosphorus 1.2 mg/dL (2.5-4.5); Potassium 3.8 mmol/L (3.5-5.1); Sodium 137 mmol/L (136-145)
[2021-11-30 06:13] LABS: Glucose Point of Care 160 mg/dL (70-110)
[2021-11-30 06:13] LABS: Glucose Point of Care 221 mg/dL (70-110)
[2021-11-30 06:13] LABS: Glucose Point of Care 154 mg/dL (70-110)
[2021-11-30 06:13] LABS: Glucose Point of Care 198 mg/dL (70-110)
[2021-11-30 06:13] LABS: Glucose Point of Care 155 mg/dL (70-110)
[2021-11-30 06:27] LABS: Anion Gap 15.8 (5-19); Blood Urea Nitrogen 16 mg/dL (6-20); Calcium 9.2 mg/dL (8.5-10.5); Carbon Dioxide 14 mmol/L (22-29); Chloride 111 mmol/L (98-107); Glomerular Filtration Rate 104.2 mL/min (90-130); Glucose 163 mg/dL (65-115); Osmolality Calculated 289 mOsm/kg (285-295); Potassium 3.8 mmol/L (3.5-5.1); Sodium 137 mmol/L (136-145)
--- NOTE | 2021-11-30 07:11 | PM.PN ---
Subjective Subjective: POD 3 Patient resting comfortably. Mild back pain denies any leg pain. Denies any fever chills or drainage from her incisional site. Vitals/I&O/Wt Last Vital Signs Temp 97.8 F 11/30/21 00:00 Pulse 99 11/30/21 06:00 Resp 14 11/30/21 06:00 BP 113/74 11/30/21 06:00 Pulse Ox 96 11/30/21 06:00 O2 Del Method 11/30/21 00:00 11/29/21 11/30/21 11/30/21 22:59 06:59 14:59 Intake Total 1166.90 / 1166.90 1574.3 / 2741.20 Output Total 675 / 675 Balance 1166.90 / 1166.90 899.3 / 2066.20 Weight last 48 hrs Weight 191 lb 12.8 oz Weight 192 lb Physical Exam Narrative: Patient presents alert and oriented x3 with a good general appearance normal mood and affect. Normal coordination normal stability. Mild tenderness around the incisional site with the incision appears with mild bloody discharge. 5/5 motor strength both lower extremities with negative straight leg raise bilaterally. Calves are supple no medial thigh tenderness. Pulses are 2+ at the dorsalis pedis and posterior tibial region. Good capillary refill throughout normal sensation light touch both lower extremities. Data : 11/30/21 02:17 11/30/21 06:00 A&P Assessment and plan (1) S/P lumbar laminectomy: Encourage dressing change with reapplication of a [place] island dressing. Continue to mobilize with physical therapy. Okay from an orthopedic standpoint to discharge when medically stable. Attestations Medical Necessity Statement*: defer to medical team Coding Level of Care Code Acute Mobile Web Application Developer for Chg Fwd Diagnoses S/P lumbar laminectomy Z98.890
[2021-11-30] MEDS: dextrose 5%-ns + KCl 40 40 MEQ/1,000 ML BAG 125 MEQ IV (07:32)
[2021-11-30] MEDS: pantoprazole DR 40 mg Tablet PO (08:57)
[2021-11-30] MEDS: hyDROXYzine 25 mg Capsule PO ×2 (08:57→17:18)
[2021-11-30] MEDS: levothyroxine 200 mcg Tablet PO (08:57)
[2021-11-30] MEDS: venlafaxine ER (24HR) 75 mg Capsule PO (08:57)
[2021-11-30] MEDS: gabapentin 300 mg Capsule 900 MG PO ×4 (08:57→20:46)
[2021-11-30] MEDS: levothyroxine 25 mcg Tablet PO (09:00)
[2021-11-30 09:15] LABS: Glucose Point of Care 188 mg/dL (70-110)
[2021-11-30 10:30] LABS: Anion Gap 14.7 (5-19); Blood Urea Nitrogen 14 mg/dL (6-20); Calcium 9.1 mg/dL (8.5-10.5); Carbon Dioxide 15 mmol/L (22-29); Chloride 110 mmol/L (98-107); Glomerular Filtration Rate 104.2 mL/min (90-130); Glucose 211 mg/dL (65-115); Osmolality Calculated 289 mOsm/kg (285-295); Potassium 3.7 mmol/L (3.5-5.1); Sodium 136 mmol/L (136-145)
--- NOTE | 2021-11-30 10:37 | PC.CHAP ---
Pastoral Care Encounter/Spiritual Assessment Type of Contact [] Declined business process associate visit [] Patient/Family/Request visit [] Outpatient visit [] Follow-up visit [] Physician referral [] Code/Alert [x] Routine visit [] Staff referral [] Actively dying [] Patient sleeping [] Family support [] [] Out of room [] Palliative care [] [] Receiving care in room [] Pre-surgical visit [] Trauma [] Long length of stay [x] ICU visit [] Other:patient tired... prayed for strength and healing..... Relational/Emotional Strength [] Patient feels connected with others/family/visitors/staff [] Distress [] Loneliness/isolation [] Abandonment Spirituality of Patient [] Person of Alyx [] Attends Presybeterian of their Alyx [] Believes in Prayer [] Reads Bible or Pentecostalism materials [] There are Spiritual issues to be addressed Web Solutions Architect Interventions [x] Prayer [] Active listening [] Non-anxious presence [] Spiritual/emotional support [] Crisis/trauma care [] Spiritual counseling [] Bereavement support [] Provided bereavement packet [] Provided Bible/devotional materials [] Provided toy/stuffed animal, coloring book to patient or family member [] Provided Communion [] Anointing/[place] [] Salvation [x] Completed spiritual assessment [] Other: Impact on Illness or Injury [] Angry [] Fearful [] Anxious [] Often cries [] Exhaustion [] Unable to work [] Unable to attend church [] Unable to walk/stand [] Unable to read [] Unable to drive [] Unable to eat/drink [] Unable to sleep [] Unable to be with family [] Patient intubated [] Other: Summary Time spent with patient
[2021-11-30 10:48] LABS: Phosphorus 0.7 mg/dL (2.5-4.5)
--- NOTE | 2021-11-30 10:52 | PC.NURSE ---
Dr. Gonzales reviewed BMP, gave v.o. to switch fluids to NS, switch to ss insulin until patient's home inulin pump is brought in then continue per home dose and stop SS insulin, K phos 80 meq x1, start CC diet
[2021-11-30 10:59] LABS: Glucose Point of Care 175 mg/dL (70-110)
[2021-11-30] MEDS: sodium chloride 0.9% 1,000 ML 75 ML IV (11:04)
[2021-11-30] MEDS: insulin lispro 100 unit/1 mL SUBCUT ×3 (11:10→20:45)
[2021-11-30 11:16] LABS: Chol HDL Ratio 5.46 mg/dL (0.0-4.40); Cholesterol 224 mg/dL (0-200); HDL Cholesterol 41 mg/dL (60-100); Iron 21 ug/dL (37-145); LDL Cholesterol Calculated 106 mg/dL (50-129); Percent Saturation 10.4 % (20-50); Total Iron Binding Capacity 201 mcg/dl; Triglycerides 386 mg/dL (0-150); Unsaturated Iron Binding 180 ug/dL (112-347); VLDL Cholestrol Calculation 77 mg/dL (0-30)
[2021-11-30 11:26] LABS: T3 Free 1.1 PG/ML (2.0-4.4); Thyroid Stimulating Hormone 1.12 uIU/mL (0.27-4.20)
--- NOTE | 2021-11-30 14:47 | PM.PN ---
Subjective Subjective: Hospital course, labs appreciated. Examination today patient lying comfortably in bed. No acute events overnight. Patient states she is feeling hungry. No more nauseous. Currently on an insulin drip and D5 NS with 40 mg of potassium. Sliding scale today morning labs trending down to normal though bicarb still on lower side. Patient states she ran out of her OmniPod's since her surgery. She removed the OmniPod prior to surgery as per recommendations from her anesthesiologist. States feeling a lot better now. Vitals/I&O/Wt Last Vital Signs Temp 97.8 F 11/30/21 00:00 Pulse 101 H 11/30/21 13:00 Resp 16 11/30/21 13:00 BP 126/71 11/30/21 13:00 Pulse Ox 96 11/30/21 13:00 O2 Del Method 11/30/21 08:00 11/29/21 11/30/21 11/30/21 22:59 06:59 14:59 Intake Total 1166.90 / 1166.90 1574.3 / 2741.20 1400 / 1400 Output Total 675 / 675 Balance 1166.90 / 1166.90 899.3 / 2066.20 1400 / 1400 Weight last 48 hrs Weight 86.999 kg Weight 87.09 kg Physical Exam Narrative: Mother at bedside Const: COMMON NORMALS: patient oriented x3 and alert GENERAL APPEARANCE: cooperative ORIENTATION/CONSCIOUSNESS: Yes awake HENMT: COMMON NORMALS: oropharynx normal OTHER: Dry MM Neck/C-Spine: COMMON NORMALS: no JVD Resp: COMMON NORMALS: normal respiratory effort and clear to auscultation bilaterally AUSCULTATION: clear to auscultation bilaterally Cardio: COMMON NORMALS: no JVD, regular rhythm, S1 normal heart sound present, S2 normal heart sound present and No murmurs present (Cardio) RATE: tachycardic RHYTHM: regular rhythm HEART SOUNDS: S1 normal heart sound present and S2 normal heart sound present GI: COMMON NORMALS: Normal to inspection, nondistended, normoactive bowel sounds present, Soft to palpation and non-tender PALPATION: Yes Soft to palpation Back/Pelvis: OTHER: Postoperative dressing, no surrounding drainage or erythema, mild dried blood strikethrough. Extremity: COMMON NORMALS: no joint enlargement and no pedal edema Neuro: COMMON NORMALS: patient oriented x3 and moves all extremities SENSORIUM/ORIENTATION: Yes alert Skin: COMMON NORMALS: no rashes or lesions noted GENERAL SKIN EXAM: no rashes or lesions noted Data : 11/30/21 02:17 11/30/21 09:51 A&P Assessment and plan (1) DKA, type 2: Resolved. Stop insulin drip and switch to insulin sliding scale high-dose protocol. Stop D5 NS and switch to NS at 75 cc/h. Repeat BMP at 8 PM. Once patient's outpatient insulin pods are available we will start the insulin pump again and switch to insulin sliding scale low-dose protocol. Will need a follow-up with director report as an outpatient. Recheck A1c and lipid panel. Will start on statins accordingly. Replete electrolytes. (2) S/P lumbar laminectomy: As per orthopedic team. (3) High anion gap metabolic acidosis: (4) Hyperlipidemia: Appreciate lipid panel. Start on atorvastatin at 40 mg daily. Qualifiers: Hyperlipidemia type: mixed hyperlipidemia Qualified Code(s): E78.2 - Mixed hyperlipidemia (5) Essential (primary) hypertension: Goal blood pressure less than 140/90 mmHg. Blood pressures normal without antihypertensive. For now continue to hold off on antihypertensives. Plan Metabolic acidosis: As above Alkaline phosphatase elevation: 177, suspect secondary to dehydration, reassess liver parameters. Pursue further evaluation in case persistently elevated. She has had no abdominal pain or other GI symptoms. GERD Hypothyroidism Allergic rhinitis Anxiety and depression Cancer of thyroid HTN HLD Herpes zoster neuropathy Other chronic conditions noted. Attestations Medical Necessity Statement*: Requires further hospitalization for management of resolution of DKA while trial of diet started Critical Care Time: The high probability of a clinically significant, sudden or life threatening deterioration of the patient's [endocrinology] system(s) required my full and direct attention, intervention and personal management. The critical care time is as shown. This time is in addition to time spent performing any reported procedures but includes the following: [x] Data and vital sign review and interpretation [x] Patient assessment, examination and intervention [x] Documentation [x] Medication orders and management Coding Level of Care Code Acute Mud Trucker for [facility] Fwd Diagnoses DKA, type 2 E11.10 S/P lumbar laminectomy Z98.890 High anion gap metabolic acidosis E87.29 Hyperlipidemia E78.2 Hyperlipidemia type: mixed hyperlipidemia Essential (primary) hypertension I10
[2021-11-30 17:06] LABS: Glucose Point of Care 324 mg/dL (70-110)
[2021-11-30] MEDS: ferrous gluconate 324 mg Tablet PO (17:18)
[2021-11-30] MEDS: enoxaparin 40 mg/0.4 mL Syringe SUBCUT (19:45)
[2021-11-30 21:41] LABS: Anion Gap 16.7 (5-19); Blood Urea Nitrogen 11 mg/dL (6-20); Carbon Dioxide 17 mmol/L (22-29); Chloride 108 mmol/L (98-107); Glomerular Filtration Rate 104.2 mL/min (90-130); Glucose 339 mg/dL (65-115); Osmolality Calculated 297 mOsm/kg (285-295); Potassium 4.7 mmol/L (3.5-5.1); Sodium 137 mmol/L (136-145)
[2021-12-01] VITALS (10 sets, daily range): BP systolic 126–167; BP diastolic 71–89; PULSE 100–122; RESP 9–22; TEMP 36.8–37; O2SAT 94–96
[2021-12-01] MEDS: sodium chloride 0.9% 1,000 ML 75 ML IV (00:06)
[2021-12-01 03:11] LABS: Basophils % 0.5 %; Eosinophils # 0.1 10^3/uL (0.0-0.8); Eosinophils % 0.9 %; Hematocrit 32.6 % (37.0-47.0); Hemoglobin 11.1 g/dL (11.5-15.3); Lymphocytes # 1.1 10^3/uL (0.8-4.8); Lymphocytes % 13.7 %; Mean Corpuscular Hemoglobin 30.5 pg (28.0-34.0); Mean Corpuscular Volume 89.6 fl (81-99); Mean Platelet Volume 10.6 fL (7.4-10.4); Monocytes # 0.7 10^3/uL (0.2-0.9); Monocytes % 9.3 %; Neutrophils % 74.2 %; Nucleated Red Blood Cells % 0 %; Platelet Count 239 10^3/cmm (130-400); Red Blood Count 3.64 10^6/uL (4.1-5.3); Red Cell Distribution Width 13.7 % (12.1-15.1); White Blood Count 7.8 10^3/uL (4.0-10.0)
[2021-12-01 03:24] LABS: Estmated Average Glucose 315; Hemoglobin A1C 12.6 % (4.0-6.0)
[2021-12-01 03:35] LABS: Glucose Point of Care 308 mg/dL (70-110)
[2021-12-01 03:36] LABS: Alanine Aminotransferase 13 U/L (0-33); Albumin Level 3.2 g/dL (3.5-5.2); Alkaline Phosphatase 128 U/L (35-105); Anion Gap 16.9 (5-19); Aspartate Amino Transferase 12 U/L (0-32); Blood Urea Nitrogen 11 mg/dL (6-20); Carbon Dioxide 18 mmol/L (22-29); Chloride 108 mmol/L (98-107); Globulin 3.2 g/dL (1.3-4.6); Glomerular Filtration Rate 128.6 mL/min (90-130); Glucose 241 mg/dL (65-115); Osmolality Calculated 295 mOsm/kg (285-295); Potassium 3.9 mmol/L (3.5-5.1); Sodium 139 mmol/L (136-145); Total Bilirubin 0.3 mg/dL (0.15-1.2); Total Protein 6.4 g/dL (6.6-8.7)
[2021-12-01 07:36] LABS: Glucose Point of Care 314 mg/dL (70-110)
[2021-12-01] MEDS: insulin lispro 100 unit/1 mL SUBCUT (08:16)
[2021-12-01] MEDS: levothyroxine 200 mcg Tablet PO (08:17)
[2021-12-01] MEDS: pantoprazole DR 40 mg Tablet PO (08:17)
[2021-12-01] MEDS: gabapentin 300 mg Capsule 900 MG PO (08:17)
[2021-12-01] MEDS: levothyroxine 25 mcg Tablet PO (08:17)
[2021-12-01] MEDS: hyDROXYzine 25 mg Capsule PO (08:17)
[2021-12-01] MEDS: ferrous gluconate 324 mg Tablet PO (08:17)
[2021-12-01] MEDS: venlafaxine ER (24HR) 75 mg Capsule PO (08:17)
--- NOTE | 2021-12-01 09:30 | PM.DCS ---
Discharge Providers Date of Admission: 11/29/21 17:34 Date of Discharge: December 01, 2021 Attending Provider at Admission: Mamadou Ross Attending Provider at Discharge: Lester Gonzales MD Primary Care Provider: Ciaran Sen DO Diagnoses at Discharge Discharge Diagnosis (1) DKA, type 2: Status: Acute (2) S/P lumbar laminectomy: Status: Acute (3) High anion gap metabolic acidosis: Status: Acute (4) Hyperlipidemia: Status: Chronic Qualifiers: Hyperlipidemia type: mixed hyperlipidemia Qualified Code(s): E78.2 - Mixed hyperlipidemia (5) Essential (primary) hypertension: Status: Chronic Reason for Visit Reason for Visit: Post back surgery, severe pain Hospital Course Hospital Course Pleasant 56-year lady with history of DM2, insulin pump, 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 Recently also had undergone L4-5 laminectomy with partial facetectomies due to lumbar stenosis with neurogenic claudication, I supposed to following up with orthopedics in office on 12/10, has had back pain, but not other symptoms.? She was last preop to stop her OmniPod which she did and since then she has not been to restart as she ran out of the insulin OmniPod's. She has been having elevated blood glucose.? In ER she is found to be dehydrated, with ketone odor, with sinus tachycardia, leukocytosis 18.2, hemoconcentration, with metabolic acidosis, bicarb of 6, anion gap 33.2.? ABG 6.97/21.1/34.5.? Sodium 136.? Potassium 5.2.? Blood glucose 436.? Alk phos 177. She was admitted to the ICU for further evaluation management of DKA. She started on insulin drip and IV fluids as per DKA protocol. She responded well to the treatment and her gap resolved. She is tolerating diet well. She was able to get the OmniPod but was found not able to connect to the insulin pump hence she has been discharged Lantus and insulin sliding scale. She is able to get the OmniPod fixed. Once she is able to connect to insulin pump she will stop taking the Lantus and sliding scale insulin. The plan is discussed in detail with the patient and she is agreeable. Patient is advised to maintain hydration with at least 2.5 to 3 L of liquid daily. Physical Exam Const: COMMON NORMALS: patient oriented x3 and alert GENERAL APPEARANCE: cooperative ORIENTATION/CONSCIOUSNESS: Yes awake HENMT: COMMON NORMALS: oropharynx normal OTHER: Dry MM Neck/C-Spine: COMMON NORMALS: no JVD Resp: COMMON NORMALS: normal respiratory effort and clear to auscultation bilaterally AUSCULTATION: clear to auscultation bilaterally Cardio: COMMON NORMALS: no JVD, regular rhythm, S1 normal heart sound present, S2 normal heart sound present and No murmurs present (Cardio) RATE: tachycardic RHYTHM: regular rhythm HEART SOUNDS: S1 normal heart sound present and S2 normal heart sound present GI: COMMON NORMALS: Normal to inspection, nondistended, normoactive bowel sounds present, Soft to palpation and non-tender PALPATION: Yes Soft to palpation Back/Pelvis: OTHER: Postoperative dressing, no surrounding drainage or erythema, mild dried blood strikethrough. Extremity: COMMON NORMALS: no joint enlargement and no pedal edema Neuro: COMMON NORMALS: patient oriented x3 and moves all extremities SENSORIUM/ORIENTATION: Yes alert Skin: COMMON NORMALS: no rashes or lesions noted GENERAL SKIN EXAM: no rashes or lesions noted Discharge Data Studies Completed and Pending Completed Studies During Hospitalization Category Date Time Status XR chest 1V portable [id number] Stat Exams 11/29/21 17:44 Completed Pending at discharge Category Date Time Status Complete Blood Count w/Auto AM LABS Lab 12/02/21 04:00 Ordered Comprehensive Metabolic Panel AM LABS Lab 12/02/21 04:00 Ordered VBG [Venous Blood Gas] Stat Lab 11/29/21 16:58 Results Radiology Impressions Chest X-Ray 11/29/21 17:44 IMPRESSION: No acute findings. Laboratory Results WBC 7.8 10^3/uL (4.0-10.0) 12/01/21 02:39 RBC 3.64 10^6/uL (4.1-5.3) L 12/01/21 02:39 Hgb 11.1 g/dL (11.5-15.3) L 12/01/21 02:39 Hct 32.6 % (37.0-47.0) L 12/01/21 02:39 MCV 89.6 fl (81-99) 12/01/21 02:39 MCH 30.5 pg (28.0-34.0) 12/01/21 02:39 MCHC 34.0 g/dL (30.0-36.0) 12/01/21 02:39 RDW 13.7 % (12.1-15.1) 12/01/21 02:39 Plt Count 239 10^3/cmm (130-400) 12/01/21 02:39 MPV 10.6 fL (7.4-10.4) H 12/01/21 02:39 Neut % (Auto) 74.2 % 12/01/21 02:39 Lymph % (Auto) 13.7 % 12/01/21 02:39 Navarro % (Auto) 9.3 % 12/01/21 02:39 Eos % (Auto) 0.9 % 12/01/21 02:39 Baso % (Auto) 0.5 % 12/01/21 02:39 Neut # (Auto) 5.80 10^3/uL (1.8-7.7) 12/01/21 02:39 Lymph # (Auto) 1.1 10^3/uL (0.8-4.8) 12/01/21 02:39 Navarro # (Auto) 0.7 10^3/uL (0.2-0.9) 12/01/21 02:39 Eos # (Auto) 0.1 10^3/uL (0.0-0.8) 12/01/21 02:39 Baso # (Auto) 0.0 10^3/uL (0.0-0.1) 12/01/21 02:39 Nucleated RBC % (auto) 0 % 12/01/21 02:39 Nucleated RBCs # 0.0 /100WBC 12/01/21 02:39 Specimen Type Venous 11/29/21 16:58 Carlos A Test Pos 11/29/21 16:58 VBG pH 6.97 (7.32-7.42) L* 11/29/21 16:58 VBG pCO2 21.1 mmHg (41-51) L 11/29/21 16:58 VBG pO2 34.5 mmHg (25-40) 11/29/21 16:58 VBG HCO3 4.8 mmol/L (24-28) L 11/29/21 16:58 VBG Base Excess -25.6 mmol/L (-3.0-3.0) L 11/29/21 16:58 VBG Hematocrit 41.8 % (37-47) 11/29/21 16:58 O2 Delivery Device Room air 11/29/21 16:58 FiO2 21.0 % 11/29/21 16:58 Observer Gravity Prospecting ID Monro 11/29/21 16:58 Sodium 139 mmol/L (136-145) 12/01/21 02:39 Potassium 3.9 mmol/L (3.5-5.1) 12/01/21 02:39 Chloride 108 mmol/L (98-107) H 12/01/21 02:39 Carbon Dioxide 18 mmol/L (22-29) L 12/01/21 02:39 Anion Gap 16.9 (5-19) 12/01/21 02:39 BUN 11 mg/dL (6-20) 12/01/21 02:39 Creatinine 0.5 mg/dL (0.5-0.9) 12/01/21 02:39 GFR Calculation 128.6 mL/min (90-130) 12/01/21 02:39 Glucose 241 mg/dL (65-115) H 12/01/21 02:39 POC Glucose 314 mg/dL (70-110) H 12/01/21 07:31 Estimat Average Glucose 315 12/01/21 02:39 Hemoglobin A1c 12.6 % (4.0-6.0) H 12/01/21 02:39 Calculated Osmolality 295 mOsm/kg (285-295) 12/01/21 02:39 Calcium 9.0 mg/dL (8.5-10.5) 12/01/21 02:39 Phosphorus 0.7 mg/dL (2.5-4.5) L* D 11/30/21 09:51 Magnesium 2.1 mg/dL (1.7-2.3) 11/30/21 02:17 Iron 21 ug/dL (37-145) L 11/30/21 09:51 TIBC 201 mcg/dl 11/30/21 09:51 % Saturation 10.4 % (20-50) L 11/30/21 09:51 Unsat Iron Binding 180 ug/dL (112-347) 11/30/21 09:51 Total Bilirubin 0.3 mg/dL (0.15-1.2) 12/01/21 02:39 AST 12 U/L (0-32) 12/01/21 02:39 ALT 13 U/L (0-33) 12/01/21 02:39 Alkaline Phosphatase 128 U/L (35-105) H 12/01/21 02:39 Total Protein 6.4 g/dL (6.6-8.7) L 12/01/21 02:39 Albumin 3.2 g/dL (3.5-5.2) L 12/01/21 02:39 Globulin 3.2 g/dL (1.3-4.6) 12/01/21 02:39 Triglycerides 386 mg/dL (0-150) H 11/30/21 09:51 Cholesterol 224 mg/dL (0-200) H 11/30/21 09:51 LDL Cholesterol, Calc 106 mg/dL (50-129) 11/30/21 09:51 Total VLDL Cholesterol 77 mg/dL (0-30) H 11/30/21 09:51 HDL Cholesterol 41 mg/dL (60-100) L 11/30/21 09:51 Cholesterol/HDL Ratio 5.46 mg/dL (0.0-4.40) H 11/30/21 09:51 TSH 1.12 uIU/mL (0.27-4.20) 11/30/21 09:51 Free T4 1.20 ng/dL (0.82-1.77) 11/30/21 09:51 Free T3 1.1 PG/ML (2.0-4.4) L 11/30/21 09:51 Urine Color Yellow (Yellow) 11/29/21 18:25 Urine Appearance Hazy (CLEAR) A 11/29/21 18:25 Urine pH 5 (5-7) 11/29/21 18:25 Ur Specific Alanson 1.025 (1.005-1.030) 11/29/21 18:25 Urine Protein 1+ (Negative) H 11/29/21 18:25 Urine Glucose (UA) 4+ (Normal) H 11/29/21 18:25 Urine Ketones 3+ (Negative) H 11/29/21 18:25 Urine Blood 2+ (Negative) H 11/29/21 18:25 Urine Nitrate Negative (Negative) 11/29/21 18:25 Urine Bilirubin Neg (Negative) 11/29/21 18:25 Urine Urobilinogen Norm mg/dL (Negative) 11/29/21 18:25 Ur Leukocyte Esterase Negative (Negative) 11/29/21 18:25 Urine RBC 5-10 /hpf (0-2) H 11/29/21 18:25 Urine WBC Rare /hpf (0-5) 11/29/21 18:25 Ur Squamous Epith Cells 10-15 /hpf (0-5) H 11/29/21 18:25 Amorphous Sediment Not Reportable 11/29/21 18:25 Urine Bacteria 2+ /hpf (NONE) H 11/29/21 18:25 Urine Mucus 1+ /hpf 11/29/21 18:25 Vitals Last Vital Signs Temp 98.3 F 12/01/21 04:00 Pulse 100 12/01/21 08:03 Resp 16 12/01/21 08:03 BP 150/81 12/01/21 06:00 Pulse Ox 94 12/01/21 08:03 O2 Del Method 12/01/21 08:03 Discharge Plan Discharge Patient Disposition: Home Condition: Stable Prescriptions: New tramadol 50 mg tablet 50 mg PO Q8H PRN (Reason: pain) Qty: 14 0RF ferrous gluconate 324 mg (37.5 mg iron) Tablet 324 mg PO BIDWM Qty: 60 0RF insulin lispro [Humalog Lamont KwikPen U-100] 100 unit/mL insulin pen, half-unit See Protocol SUBCUT TID Qty: 15 0RF Protocol: Insulin Corrective High-Dose Regimen Condition: Fingerstick Blood Glucose Dose/Route: Insulin Units Condition: 141-180 mg/dl Dose/Route: 6 units/SQ Condition: 181-220 mg/dl Dose/Route: 8 units/SQ Condition: 221-260 mg/dl Dose/Route: 10 units/SQ Condition: 261-300 mg/dl Dose/Route: 12 units/SQ Condition: 301-350 mg/dl Dose/Route: 14 units/SQ Condition: 351-400 mg/dl Dose/Route: 16 units/SQ Condition: greater than 400 mg/dl Dose/Route: 18 units/SQ insulin glargine [Lantus Solostar U-100 Insulin] 100 unit/mL (3 mL) insulin pen 15 unit SUBCUT BID Qty: 15 0RF Continued fenofibrate 160 mg tablet 160 mg PO DAILY Qty: 90 3RF acetaminophen [Tylenol] 325 mg tablet 325 mg PO QID PRN (Reason: Pain) albuterol sulfate [ProAir HFA] 90 mcg/actuation HFA aerosol inhaler 2 puff INHALATION QID PRN (Reason: Shortness Of Breath) mupirocin 2 % ointment 1 applic topical BID Qty: 22 0RF cholecalciferol (vitamin D3) [Vitamin D3] 125 mcg (5,000 unit) tablet 5,000 unit PO DAILY cetirizine [Zyrtec] 10 mg tablet 10 mg PO DAILY PRN (Reason: allergy symptoms) Qty: 30 1RF fluticasone propionate 50 mcg/actuation spray,suspension 1 spray intranasal BID PRN (Reason: nasal congestion) Qty: 16 1RF Rx Instructions: administer into each nostril amlodipine 5 mg tablet 5 mg PO DAILY Qty: 90 0RF hydroxyzine pamoate 25 mg capsule 25 mg PO BID Qty: 180 0RF rosuvastatin [Crestor] 40 mg tablet 40 mg PO DAILY Qty: 90 0RF venlafaxine [Effexor XR] 75 mg capsule,extended release 24hr 75 mg PO DAILY Qty: 90 0RF levothyroxine [Levo-T] 200 mcg tablet 200 mcg PO DAILY Qty: 90 3RF Rx Instructions: Take one tablet a day one hour before breakfast and other medicine. [place] [place] FreeStyle Karishma 2 Spreckels [facility] [place] See Rx Instructions .Route Qty: 1 0RF Rx Instructions: Check BS 4 times a day. [place] [place] FreeStyle Karishma 14 Day Sensor Kit See Rx Instructions .ROUTE .MEDSUPPLY Qty: 3 3RF Rx Instructions: check blood sugar 4 times (DME) FreeStyle Karishma 2 Sensor Kit See Rx Instructions .Route Qty: 6 3RF Rx Instructions: Change every 14 days. [place] [place] Omnipod DASH PDM Kit (Gen 4) [facility] [place] See Rx Instructions .Route Qty: 1 0RF Rx Instructions: As directed [place] [place] insulin pump cartridge Cartridge See Rx Instructions .Route Qty: 30 3RF Rx Instructions: As directed pantoprazole [Protonix] 40 mg tablet,delayed release (DR/EC) 40 mg PO DAILY Qty: 90 1RF insulin lispro [Humalog U-100 Insulin] 100 unit/mL solution See Rx Instructions SUBCUT .COMPLEX Qty: 30 3RF Rx Instructions: Basal setting is 1.5 from 6 am to 12 am and 1.2 from 12 am to 6 am 32.4 u/day. SUBCUT 24 hour dosing; gabapentin 300 mg capsule 900 mg PO QID Qty: 720 0RF Levo-T 25 mcg tablet 25 mcg PO DAILY Rx Instructions: Take one half tablet by mouth daily. Held lisinopril 20 mg tablet 20 mg PO DAILY Qty: 90 0RF Hold Instructions: Resume on 12/08/21. Discharge Orders: Discharge Order (Routine); Ordered 12/01/21 Ordered By: Lester Gonzales Referrals: Ciaran Sen DO [Primary Care Provider] - 7-10 days Discharge Diet: Diabetic Discharge Activity: Resume usual activity and Increase activity as tolerated Patient Instructions: Opioid Safety Activity Restrictions/Additional Instructions: During the time you get your OmniPod fixed take Lantus and lispro as directed. Take Lantus 15 units twice daily. Lispro as per insulin sliding scale. Once OmniPod/insulin pump is fixed stop taking the Lantus and lispro. Please make sure that you drink at least 2.5 to 3 L of liquid daily. Please check your blood pressure daily and maintain a blood pressure diary and follow-up with a primary care provider for further adjustment of antihypertensives. For now do not take lisinopril. Continue taking amlodipine. Please follow-up with Dr. Sen as per the schedule appointment. Discharge Attestations Time Spent in Discharge Care*: greater than 30 min Specific Discharge Activities: educating patient, discussing with manager of case/social workers/dc planners, documenting/other paperwork and evaluating patient/reviewing data Status at Discharge: Cognitive status at discharge: cognitively intact, Behavioral status at discharge: cooperative, Functional status at discharge: independent ambulation, Overall status at discharge: patient is back to baseline Quality Metrics Clinical Quality Measures [ No reported AMI, CVA or VTE this stay] Coding Level of Care Code Acute g FW DC note Diagnoses DKA, type 2 E11.10 S/P lumbar laminectomy Z98.890 High anion gap metabolic acidosis E87.29 Hyperlipidemia E78.2 Hyperlipidemia type: mixed hyperlipidemia Essential (primary) hypertension I10
[2021-12-01] MEDS: TRAMadol 50 mg Tablet PO (10:10)
[2021-12-01] MEDS: insulin glargine 100 units/1 mL 15 UNIT SUBCUT (10:11)
--- NOTE | 2021-12-01 12:27 | PC.NURSE ---
All D/C instructions educated to patient, patient signed D/C form, no questions or concerns expressed. patient margo at this time transported by mother
--- NOTE | 2021-12-01 12:35 | PC.NURSE ---
Sliding scale insulin instructions read to patient, patient reported understanding and read back instructions
--- NOTE | 2021-12-21 10:44 | PC.SOCIAL ---
Fax received from [employer] stating insurance was not going to cover lantus. Called [facility], they state that they do not show lantus on patient's profile. CM called and spoke with patient. She states that she was able to go to [facility] pharmacy and got her insulin same day. She had no concerns with discharge. She stated that she was still sore, but she was working on it and doing well.
== END 2021-12-01 12:00 | disposition home or self-care (01) | DRG 638 ==
LOC: ER 17:12 → ICU 23:49
PROVIDERS: Admitting Provider Internal Medicine; Emergency Provider Emergency Medicine; PCP Orthopaedic Surgery; Visit Provider Student in an Organized Health Care Education/Training Program
DX: E11.10 Type 2 diabetes mellitus with ketoacidosis without coma (principal); B02.23 Postherpetic polyneuropathy; T38.3X6A Underdosing of insulin and oral hypoglycemic [antidiabetic] drugs, initial encounter; Z91.138 Patient's unintentional underdosing of medication regimen for other reason; K21.9 Gastro-esophageal reflux disease without esophagitis; E03.9 Hypothyroidism, unspecified; E86.0 Dehydration; I10 Essential (primary) hypertension; E78.2 Mixed hyperlipidemia; F41.9 Anxiety disorder, unspecified; F32.A Depression, unspecified; Z96.41 Presence of insulin pump (external) (internal); Z98.890 Other specified postprocedural states; Z79.4 Long term (current) use of insulin; Z87.891 Personal history of nicotine dependence
CPT/HCPCS: 36415; 36416; 71045; 80048; 80053; 80061; 81001; 82803; 82962; 83036; 83540; 83550; 83735; 84100; 84439; 84443; 84481; 85025; 96365; 96372; 96375; 99285; J1170; J1630; J1650; J1815; J1885; J2405; J7030; J7050

== ENCOUNTER 2022-05-06 09:40 | Outpatient (CLI) | payer BC, SELFPAY ==
--- NOTE | 2022-05-06 09:47 | MM_ITS ---
WS: [id number] BILATERAL SCREENING DIGITAL TOMOSYNTHESIS MAMMOGRAM WITH CAD HISTORY: SCREEN COMPARISON: 12/02/2009 Bilateral CC and MLO views with tomosynthesis and synthetic mammography submitted. Computer aided det ection analyzed. Breast composition: There are scattered areas of fibroglandular density. No suspicious masses, microc alcifications or architectural distortion. Benign calcifications, bilateral. MM/[place] [id number] IMPRESSION: BI-RADS: 2-Benign FOLLOW UP: 1 Year Follow-up
== END 2022-05-06 09:41 | disposition home or self-care (01) ==
LOC: RAD 09:41
PROVIDERS: PCP Family Medicine; Visit Provider Family Medicine
DX: Z12.31 Encounter for screening mammogram for malignant neoplasm of breast (principal)
CPT/HCPCS: 77063; 77067

== ENCOUNTER → 2022-06-18 10:21 | Outpatient (BNVA) | payer BC, SELFPAY | PROVIDERS: PCP Family Medicine; Visit Provider Internal Medicine | DX: E11.65 Type 2 diabetes mellitus with hyperglycemia (principal); E03.9 Hypothyroidism, unspecified; Z79.4 Long term (current) use of insulin; E78.2 Mixed hyperlipidemia; E78.5 Hyperlipidemia, unspecified | CPT/HCPCS: 36415; 80053; 80061; 82044; 83036; 83721; 84439; 84443 ==

== ENCOUNTER → 2022-12-31 09:23 | Outpatient (BNVA) | payer BC, SELFPAY | PROVIDERS: PCP Family Medicine; Visit Provider Family Medicine | DX: I10 Essential (primary) hypertension (principal); F41.8 Other specified anxiety disorders; E11.42 Type 2 diabetes mellitus with diabetic polyneuropathy; G25.0 Essential tremor; E11.65 Type 2 diabetes mellitus with hyperglycemia | CPT/HCPCS: 80053; 80061; 83036; 85025 ==

== ENCOUNTER 2023-03-14 10:55 | Outpatient (RCR) | payer BC, SELFPAY | END 2023-03-16 23:59 | disposition home or self-care (01) | LOC: SPT 10:55 | PROVIDERS: PCP Family Medicine; Visit Provider Family Medicine | DX: M25.512 Pain in left shoulder (principal); G89.29 Other chronic pain | CPT/HCPCS: 97161 ==

== ENCOUNTER 2023-05-09 06:05 | Outpatient (CLI) | payer BC, SELFPAY ==
--- NOTE | 2023-05-09 06:15 | US_ITS ---
WS: [id number] ULTRASOUND ABDOMEN CLINICAL INFORMATION: RUQ pain with dumping syndrome COMPARISON: None. FINDINGS: Liver Size: Normal. Craniocaudal length: 13.8 cm. Echogenicity: Coarse Surface nodularity: None. Mass (size and location): None. Bile ducts Intrahepatic ducts: Normal. Common bile duct diameter: 0.4 cm. Gallbladder Normal. Gallstones: None. Gallbladder sludge: None. Gallbladder wall thickening: None. Pericholecystic fluid: None. Sonographic Carrillo sign: Absent. Pancreas Normal as visualized. Spleen Splenomegaly: None. Craniocaudal length: 10.0 cm. Right kidney: Normal. Hydronephrosis: None. Size: 11.5 cm x 5.5 cm x 5.8 cm Left kidney: Normal. Hydronephrosis: None. Size: 11.6 cm x 5.3 cm x 5.7 cm. Abdominal aorta and IVC Visualized portions are normal. Ascites: None. IMPRESSION: 1. Diffuse fatty infiltration of the liver. 2. Normal gallbladder. 3. No hydronephrosis in either kidney.
== END 2023-05-09 06:06 | disposition home or self-care (01) ==
PROVIDERS: PCP Family Medicine; Visit Provider Family Medicine Adult Medicine
DX: K80.50 Calculus of bile duct without cholangitis or cholecystitis without obstruction (principal); K76.0 Fatty (change of) liver, not elsewhere classified
CPT/HCPCS: 76700

== ENCOUNTER → 2023-06-17 14:52 | Outpatient (BNVA) | payer BC, SELFPAY | PROVIDERS: PCP Family Medicine; Referring Provider Internal Medicine; Visit Provider Student in an Organized Health Care Education/Training Program | DX: M65.30 Trigger finger, unspecified finger (principal); R22.31 Localized swelling, mass and lump, right upper limb; G56.01 Carpal tunnel syndrome, right upper limb; M79.643 Pain in unspecified hand; R20.0 Anesthesia of skin | CPT/HCPCS: 73130 ==

== ENCOUNTER 2023-07-26 06:52 | Outpatient (CLI) | payer OTHER, SELFPAY ==
--- NOTE | 2023-07-26 07:15 | MR_ITS ---
WS: [id number] MRI RIGHT HAND WITHOUT CONTRAST. COMPARISON: Radiograph 06/17/2023 Multiplanar, multisequence imaging is performed without contrast. There is a marker placed over the palmar surface of the hand at the level of the mid fourth metacarpa l. At the level of the palpable marker there is an very mild skin thickening along the palmar aponeurosi s. This is low signal or intermediate signal on all sequences. There is no identifiable mass. This ma y be an area of fibrosis or scarring. This is separate from the muscles and tendons of the hand. There is a very subtle about amount of edema surrounding the A1 fabricio system of the fourth metacarpa l head. The flexor digitorum appears intact. There is no displacement from the bone. The lateral band s also appear normal. No fractures or marrow edema. No atrophy of the lumbricals. MR/MR hand RT wo con* [id number] IMPRESSION: 1. No marrow edema or fracture. 2. There is some very mild thickening involving the palmar aponeurosis, this i s at the site of the palpable nodule. There is no discrete well-formed mass. Th is may be an area of scarring with fibrosis. Very nonspecific in appearance. 3. The small amount of edema surrounding an intact A1 fabricio system at the fou rth metacarpal head level.
== END 2023-07-26 06:53 | disposition home or self-care (01) ==
LOC: RAD 06:52
PROVIDERS: PCP Family Medicine; Visit Provider Student in an Organized Health Care Education/Training Program
DX: R22.31 Localized swelling, mass and lump, right upper limb (principal)
CPT/HCPCS: 73218

== ENCOUNTER → 2023-09-16 11:05 | Outpatient (BNVA) | payer BC, SELFPAY | PROVIDERS: PCP Family Medicine; Visit Provider Internal Medicine | DX: E11.65 Type 2 diabetes mellitus with hyperglycemia (principal); E11.42 Type 2 diabetes mellitus with diabetic polyneuropathy; E11.9 Type 2 diabetes mellitus without complications; E03.9 Hypothyroidism, unspecified; Z79.4 Long term (current) use of insulin; E78.2 Mixed hyperlipidemia | CPT/HCPCS: 80053; 80061; 82044; 83036; 83721; 84439; 84443 ==

== ENCOUNTER → 2024-08-23 12:13 | Outpatient (BNVA) | payer BC, SELFPAY | PROVIDERS: PCP Family Medicine; Visit Provider Family Medicine | DX: E11.65 Type 2 diabetes mellitus with hyperglycemia (principal); E11.9 Type 2 diabetes mellitus without complications; E03.9 Hypothyroidism, unspecified | CPT/HCPCS: 80053; 80061; 82043; 83036; 83721; 84439; 84443; 85025 ==

== ENCOUNTER → 2025-01-01 16:07 | Outpatient (BNVA) | payer BC, SELFPAY | PROVIDERS: PCP Family Medicine; Visit Provider Family Medicine | DX: E11.42 Type 2 diabetes mellitus with diabetic polyneuropathy (principal); E11.9 Type 2 diabetes mellitus without complications; Z79.4 Long term (current) use of insulin; E11.65 Type 2 diabetes mellitus with hyperglycemia; E03.9 Hypothyroidism, unspecified | CPT/HCPCS: 80053; 83036 ==